=== PATIENT | male | born 1985 | race Two or more races ===

== ENCOUNTER 2022-08-31 15:35 | Outpatient (REF) | payer BC, SELFPAY ==
[2022-08-31 16:59] LABS: Hematocrit 47.6 % (42.0-52.0); Hemoglobin 16.2 g/dl (14.0-18.0); Mean Corpuscular Volume 85.2 fL (80.0-98.0); Mean Platelet Volume 9.6 fL (9.4-12.4); Platelet Count 403 X10*3/uL (160-400); Red Blood Count 5.59 X10*6/uL (4.60-5.80); Red Cell Distribution Width 12.5 % (11.0-16.0); White Blood Count 11.1 X10*3/uL (4.8-10.8)
[2022-08-31 17:26] LABS: Alanine Aminotransferase 39 U/L (0-40); Albumin Level 4.5 g/dL (3.5-5.0); Alkaline Phosphatase 145 U/L (39-117); Anion Gap 15 (12-20); Aspartate Amino Transferase 23 U/L (5-37); Blood Urea Nitrogen 13 mg/dL (9-16); Calcium 9.6 mg/dL (8.4-10.2); Carbon Dioxide 22 mmol/L (22-29); Chloride 106 mmol/L (96-108); Estimated Glomerular Filt Rate > 60; Glucose Fasting 75 mg/dL (60-99); Potassium 4.2 mmol/L (3.3-5.1); Sodium 139 mmol/L (135-145); Total Protein 7.4 g/dL (6.5-8.0)
== END 2022-08-31 15:36 | disposition home or self-care (01) ==
LOC: HO.LAB 15:35
PROVIDERS: PCP Physician Assistant; Visit Provider Physician Assistant
DX: Z13.1 Encounter for screening for diabetes mellitus (principal); M94.0 Chondrocostal junction syndrome [Tietze]; E66.9 Obesity, unspecified; R53.83 Other fatigue
CPT/HCPCS: 36415; 80053; 84443; 85027

== ENCOUNTER 2023-01-13 15:23 | Outpatient (AMB) | payer BC, SELFPAY ==
[2023-01-13 15:29] VITALS: BP 120/72; PULSE 86; O2SAT 97; BMI 31.9
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
== END 2023-01-13 16:05 | disposition home or self-care (01) ==
PROVIDERS: PCP Physician Assistant; Visit Provider Physician Assistant
DX: I10 Essential (primary) hypertension (principal); E66.09 Other obesity due to excess calories; Z68.35 Body mass index [BMI] 35.0-35.9, adult; M25.561 Pain in right knee; G89.29 Other chronic pain
CPT/HCPCS: 99214

== ENCOUNTER 2023-05-09 15:40 | Outpatient (AMB) | payer BC, SELFPAY ==
--- NOTE | 2023-05-09 16:00 | A.OFFPC_ITS ---
Vital Signs 05/09/23 16:18 Height 6 ft Weight 238 lb 4 oz BMI 32.3 BP 112/86 Blood Pressure Location Lt brachial Position Sitting Respiration 17 Pulse 84 Pulse Source Palpation Intake Visit Reasons: Annual exam Intake Note: Patient is here today for a physical. Manager [employer] Required: No Accompanied by: Self / Same As Patient Allergies No Known Allergies [No Known Allergies*] Allergy (Verified 05/09/23 16:32) Medication List - Last Reconciled 05/09/23 by Juan Pete PA-C No Known Home Meds Tobacco use date assessed: 05/09/23 Dental Screening Dental Screen Date: 05/09/23 Did you have a dental visit in the last 12 months?: Yes Did you have a dental problem in the last 6 months where you did not have access to dental care?: No Was dental information given to patient?: Patient has dentist HPI Annual exam HPI Details Patient is a 37-year-old male here today for routine annual physical ? Patient has a past medical history significant for obesity, generalized anxiety disorder and major depressive disorder, lumbar disc disease, hypertension Concern--> continues to have acute on chronic lower back pain and right shoulder pain. Recent was shoveling due to recent snowstorm. He is interested in applying for FMLA due to his back pain. Of note x-rays of his lumbar spine in 2019 showing disc narrowing at L5-S1. Has had evaluation from lumbar specialist and was considering injections . Hypertension: Has not started blood pressure medication, blood pressure today in office normal. He has been able to manage his blood pressure with lifestyle modifications. Vaccines: Up-to-date with flu vaccine, tetanus vaccine, declines COVID vaccine. [facility] Medical History CABRERA (generalized anxiety disorder) Mild recurrent major depression Class 1 obesity with body mass index (BMI) of 34.0 to 34.9 in adult Right sided sciatica Surgical History History of shoulder surgery Family History Father Diabetes Hypertension Mother Diabetes Hypertension Brother Brain aneurysm Stroke Social History Housing: House Alcohol intake: current Alcohol intake frequency: holidays/special occasions only Alcohol type: beer and wine Patient Tobacco Use Status: Former Tobacco user Quit Date: 2014 Tobacco use type: Cigarette e-Cigarette/Vaping Use: Never Used Second Hand Smoke Exposure: No service: No Current occupational status: employed 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 Cognitive needs: No Hearing needs: No Vision needs: No Questionnaire PHQ-9 Over the last 2 weeks, how often have you been bothered by any of the following problems? 1. Little interest or pleasure in doing things: not at all 2. Feeling down, depressed, or hopeless: not at all 3. Trouble falling or staying asleep, or sleeping too much: not at all 4. Feeling tired or having little energy: not at all 5. Poor appetite or overeating: not at all 6. Feeling bad about yourself - or that you are a failure or have let yourself or your family down: not at all 7. Trouble concentrating on things, such as reading the newspaper or watching television: not at all 8. Moving or speaking so slowly that other people could have noticed. Or the opposite - being so fidgety or restless that you have been moving around a lot more than usual: not at all 9. Thoughts that you would be better off or of hurting yourself in some way: not at all Total score: 0 Depression Screening Interpretation: Negative Depression Screening Done: Yes 25750 - PHQ-9 Billing: Yes Source: Developed by Drs. Denis Dougherty, Kayla Fraser, Amilcar Ramos and colleagues, with an educational jayy from [employer]. Thrive Questionnaire Date Thrive assessed: 05/09/23 I am a: Patient What is your living situation today?: I have a steady place to live Within the past 12 months, did the food you bought not last and you didn't have the money to get more?: Never true Within the past 12 months, did you worry whether your food would run out before you got money to buy more?: Never true Do you have trouble paying for medicines?: No Do you have trouble getting transportation to medical appointments?: No Do you have trouble paying your heating and electricity bill?: No Do you have trouble taking care of your child, family member or friend?: No Do you have trouble with day-to-day activities such as bathing, preparing meals, shopping, managing finances, etc.?: No Are you currently unemployed and looking for a job?: No Are you interested in more education?: No Please select the resources that you would like help with: None Currently or been in a relationship where the following occur: no concerns reported AUDIT C Alcohol Use Questionnaire (AUDIT-C) 1. How often do you have a drink containing alcohol?: Monthly or less 2. How many drinks containing alcohol do you have on a typical day when you are drinking?: 1 or 2 3. How often do you have six or more drinks on one occasion?: Never Total Score: 1 CABRERA-7 AMB Questionnaire CABRERA-7 Date CABRERA - 7 assessed: 05/09/23 Feeling nervous, anxious, or on edge: 0 = Not at all Not being able to stop or control worryin = Not at all Worrying too much about different things: 0 = Not at all Trouble relaxin = Not at all Being so restless that it is hard to sit still: 0 = Not at all Becoming easily annoyed or irritable: 0 = Not at all Feeling afraid as if something awful might happen: 0 = Not at all Total CABRERA-7 score (0-4 normal; 5-9 mild; 10-14 moderate; 15-21 severe): 0 Source: Developed by Drs. Denis Dougherty, Kayla Fraser, Amilcar Ramos and colleagues, with an educational jayy from [employer]. CABRERA-7 Assessment Billing CABRERA-7 Assessment Tool: CABRERA-7 Assessment 19748 Review of Systems Const Denies body aches, Denies chills, Denies excessive sweating, Denies fatigue, Denies fever(s) and Denies headache(s) Eyes Denies blurry vision ENT Denies dysphagia, Denies vertigo, Denies dizziness, Denies headache(s), Denies hearing loss and Denies tinnitus Card Denies chest pain, Denies chest pain with activity, Denies syncope, Denies irregular heart rhythm and Denies dyspnea Resp Denies chest congestion, Denies cough, Denies hemoptysis, Denies dyspnea and Denies wheezing GI Denies abdominal pain, Denies melena, Denies hematochezia, Denies coffee ground emesis, Denies dysphagia, Denies diarrhea, Denies nausea and Denies vomiting Denies difficulty urinating, Denies dysuria, Denies urinary frequency, Denies urinary hesitancy and Denies urinary urgency Musc Details: + right shoulder pain Reports back pain, Reports arthralgias, Denies limited range of motion, Denies muscle cramps and Denies muscle weakness Skin/Breast Denies rash and Denies skin ulcer Neuro Denies Abnormal speech present, Denies confusion, Denies vertigo, Denies diz ziness, Denies syncope, Denies headache(s), Denies memory loss and Denies seizure-like activity Psych Denies anxiety, Denies confusion, Denies depression, Denies memory loss, Denies panic attacks and Denies paranoia Endo Denies excessive sweating, Denies fatigue, Denies flushing, Denies polydipsia and Denies polyuria Aller/Immun Denies wheezing Physical exam (Primary Care) Vital Signs: Last Vital Signs Pulse 84 05/09/23 16:18 Resp 17 05/09/23 16:18 BP 112/86 05/09/23 16:18 BMI result Body Mass Index 32.3 BMI Assessment/Plan discussion: High Tobacco/Smoking Status: Tobacco use Status Tobacco use date assessed 05/09/23 05/09/23 16:22 Patient Tobacco Use Status Former Tobacco user 05/09/23 16:00 Tobacco use type Cigarette 05/09/23 16:00 e-Cigarette/Vaping Use Never Used 05/09/23 16:00 PHQ-9: PHQ-9 Score PHQ-9: Total score 0 05/09/23 16:34 Depression Screening Interpretation: Negative Thrive Assessment: Date of Thrive Assessment Date Thrive assessed 05/09/23 05/09/23 16:22 Currently or been in a relationship where the following occur: no concerns reported Const Other: Obese General: cooperative, comfortable, no acute distress, alert and awake; No confusion Orientation/consciousness: oriented to person, oriented to place, patient oriented x3 and No confusion HENMT Head: Yes normocephalic Ears: external ears normal and TM's normal bilaterally Face and sinus: No sinus tenderness Mouth: Normal oral and palatal mucosa present and tongue normal Teeth and gingiva: dentition normal and gingiva normal Throat: Yes posterior oropharynx normal, Yes tonsils normal and Yes uvula midline Eyes Conjunctivae: conjunctivae normal Sclerae: sclerae normal Pupils: Equal, round and reactive pupils present EOM: EOMs intact bilaterally Direct Ophthalmoscopy: No no photophobia Neck Neck: Yes no lymphadenopathy, No tender and Yes no JVD Thyroid: Thyroid normal Carotids: no bruits Chest Chest palpation & inspection: no tenderness Resp Effort & Inspection: normal respiratory effort, no audible wheezes, not labored and no stridor Auscultation: no crackles, no rales, no rhonchi and no wheezes Cardio Jugular venous distension: no JVD Rate: regular rate, not bradycardic and not tachycardic Rhythm: regular rhythm Bruits: no carotid bruits Peripheral pulses: Peripheral pulses 2+ throughout GI Inspection: Yes normal to inspection, No abdominal wall ecchymosis and No visible herniation Palpation (GI): Soft to palpation, nontender, no guarding, not rigid and No hepatosplenomegaly present Auscultation: normoactive bowel sounds General: Yes no CVA tenderness Back/Spine/Pelvis Back: no CVA tenderness and No back tenderness Cervical Spine: cervical ROM normal Thoracic/Lumbar Spine: thoracic and lumbar spine normal to inspection, straight leg raise negative bilaterally, No thoraco-lumbar ROM limited and No lumbar spinal tenderness Skin Lesions: no lesions Rashes: no rashes Wounds: no wounds Neuro General: oriented to person, oriented to place, patient oriented x3, CN's II-XI intact bilaterally and No confusion Cranial nerves: Yes Equal, round and reactive pupils present and Yes Normal accommodation reflex present Cognition (Neuro): normal cognition Speech: No Abnormal speech present Gait exam (Neuro): Normal gait present Motor exam (neuro): 5/5 motor strength present throughout Extrem Right upper extremity: full ROM; no cyanosis Left upper extremity: full ROM; no cyanosis Right lower extremity: no edema Left lower extremity: no edema Psych Appearance: grossly normal Mental Status: mental status grossly normal Affect: normal affect Attitude: cooperative Thought process: Normal thought process present Office Procedures Flu Questionnaire Does the patient have a severe egg allergy?: No Does the patient have severe life threatening allergies?: No Does the patient have a fever or illness today?: No Has the patient ever had Guillain-[place] Syndrome?: No Has the patient ever had any past reaction to a flu shot?: No Immunizations flu vacc [id number] 6mos up(PF) 60 mcg(15 mcgx4)/0.5 mL IM syringe Performing Provider: Juan Pete PA-C Performing Location: [facility] Administered by: EDE Parker on 05/09/23 16:27 Dose Route Admin Location Dispensed Lot Number Expiration Date NDC [employer] Block Setter 0.5 mL IM Left Deltoid 0.5 mL [id number] 10/30/23 72460-159-39 [place] VIS Given Date VIS Provided VIS Publication Date 05/09/23 Single Vaccine 20 Eligibility Eligibility Date Funding Source Not VFC Eligible 05/09/23 Private Assessment and Plan Assessment & Plan (1) Annual physical exam: Code(s): Z00.00 - Encounter for general adult medical examination without abnormal findings (2) HTN (hypertension): Code(s): I10 - Essential (primary) hypertension Qualifiers: Hypertension type: primary hypertension Qualified Code(s): I10 - Essential (primary) hypertension Plan: Patient has a history hypertension, was on blood pressure medication previously though is not interested in taking medication. Has been able to manage his blood pressure with lifestyle modifications.. Goal blood pressures to be below 140/90 (3) Obese: Code(s): E66.9 - Obesity, unspecified Qualifiers: Body mass index: BMI 35.0-35.9 Obesity classification: adult class 2 (BMI 35 - 39.9) Obesity type: due to excess calories Serious obesity com orbidity presence: without serious comorbidity Qualified Code(s): E66.09 - Other obesity due to excess calories; Z68.35 - Body mass index [BMI] 35.0-35.9, adult Plan: Patient does understand BMI is over 30 will work on being more physically active and adapting to better eating habits to reduce his weight. (4) Mild recurrent major depression: Code(s): F33.0 - Major depressive disorder, recurrent, mild Plan: Patient's PHQ-9 score 0.. Has a history of major depressive disorder though has essentially resolved, not on any medication or speaking to any mental health therapist. Otherwise denies any SI or HI (5) Lumbar disc disease with radiculopathy: Code(s): M51.16 - Intervertebral disc disorders with radiculopathy, lumbar region Plan: Patient does have a history of chronic lower lumbar spine pain. X-rays of lower lumbar spine in 2019 showing disc space narrowing at L5-S1. Has seen spinal specialist and has gotten injections. Physical therapy was not helpful in the past. At times he does get radiculopathy down lower extremities. Generally is able to manage his back pain on his own. He is interested in applying for FMLA to be off from work on times of back pain flares. Will supply with muscle relaxer to use on a p.r.n. basis for back pain. Orders: Orders Influenza [id number] Immunization 05/09/23 Z23 - Encounter for immunization Medications: New cyclobenzaprine 10 mg PO TID 7 days PRN 21 tabs 0RF muscle spasm M51.16 - Intervertebral disc disorders with radiculopathy, lumbar region Coding Level of Care Code Est Pt Prev Care [id number]) Diagnoses Annual physical exam Z00.00 Primary hypertension I10 Hypertension type: primary hypertension Class 2 obesity due to excess calories without serious comorbidity with body mass index (BMI) of 35.0 to 35.9 in adult E66.09; Z68.35 Body mass index: BMI 35.0-35.9 Obesity classification: adult class 2 (BMI 35 - 39.9) Obesity type: due to excess calories Serious obesity comorbidity presence: without serious comorbidity Mild recurrent major depression F33.0 Lumbar disc disease with radiculopathy M51.16 Additional Codes CABRERA-7 Assessment Billing - CABRERA-7 Assessment Tool: CABRERA-7 Assessment [id number] ([id number])
[2023-05-09 16:18] VITALS: BP 112/86; PULSE 84; RESP 17; BMI 32.3
== END 2023-05-09 16:51 | disposition home or self-care (01) ==
PROVIDERS: Visit Provider Physician Assistant
DX: Z23 Encounter for immunization (principal)
CPT/HCPCS: 90471; 90686; 99395

== ENCOUNTER 2023-11-15 15:24 | Outpatient (AMB) | payer BC, SELFPAY ==
[2023-11-15 15:30] VITALS: BP 124/86; PULSE 100; O2SAT 97; BMI 32.7
--- NOTE | 2023-11-15 15:30 | MHC.PC.OV ---
Vital Signs 11/15/23 15:30 Height 6 ft Weight 241 lb 4 oz BMI 32.7 BP 124/86 Blood Pressure Location Lt brachial Position Sitting Pulse 100 Pulse Source Pulse Oximeter Pulse Oximetry (%) 97 Oxygen Delivery Method Room Air Intake Visit Reasons: f/u HTN/ Lumbar spine issues Therapeutic Recreation Specialist Required: No Accompanied by: Self / Same As Patient Allergies No Known Allergies [No Known Allergies*] Allergy (Verified 11/15/23 15:35) Medication List - Last Reconciled 11/15/23 by Juan Pete PA-C cyclobenzaprine 10 mg PO TID PRN 7 days Tobacco use date assessed: 05/09/23 Dental Screening Dental Screen Date: 05/09/23 HPI f/u HTN/ Lumbar spine issues HPI Details Patient is a 38-year-old male here today for a follow-up visit ? Patient has a past medical history significant for obesity, generalized anxiety disorder and major depressive disorder, lumbar disc disease, hypertension Concern--> he reports he had an episode of left-sided sharp chest pain will at work last week. Also reports he has been having some neck discomfort and notable crepitus when rotating in flexing his neck. Concern--> continues to have acute on chronic lower back pain and right shoulder pain. Recent was shoveling due to recent snowstorm. He does use cyclobenzaprine on a p.r.n. basis for his low back pain. Of note x-rays of his lumbar spine in 2019 showing disc narrowing at L5-S1. Has had evaluation from lumbar specialist and was considering injections . Hypertension: Has not started blood pressure medication, blood pressure today in office normal. He has been able to manage his blood pressure with lifestyle modifications. [facility] Medical History CABRERA (generalized anxiety disorder) Mild recurrent major depression Class 1 obesity with body mass index (BMI) of 34.0 to 34.9 in adult Right sided sciatica Surgical History History of shoulder surgery Family History Father Diabetes Hypertension Mother Diabetes Hypertension Brother Brain aneurysm Stroke Social History Housing: House Alcohol intake: current Alcohol intake frequency: holidays/special occasions only Alcohol type: beer and wine Patient Tobacco Use Status: Former Tobacco user Tobacco use type: Cigarette e-Cigarette/Vaping Use: Never Used Second Hand Smoke Exposure: No service: No Current occupational status: employed 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 Cognitive needs: No Hearing needs: No Vision needs: No Questionnaire Thrive Questionnaire Date Thrive assessed: 05/09/23 CABRERA-7 AMB Questionnaire CABRERA-7 Date CABRERA - 7 assessed: 05/09/23 Source: Developed by Drs. Denis Dougherty, Kayla Fraser, Amilcar Ramos and colleagues, with an educational jayy from [employer]. Review of Systems Const Denies headache(s) Eyes Denies loss of vision ENT Denies vertigo, Denies dizziness, Denies headache(s) and Denies sore throat Card Denies chest pain, Denies leg edema and Denies lightheadedness Resp Denies cough, Denies hemoptysis and Denies wheezing GI Denies abdominal pain, Denies melena, Denies constipation, Denies diarrhea and Denies vomiting Denies dysuria, Denies urinary frequency and Denies urinary urgency Musc Denies arthralgias, Denies joint swelling, Denies numbness and Denies tingling Neuro Denies Abnormal speech present, Denies behavioral changes, Denies vertigo, Denies dizziness, Denies headache(s), Denies loss of vision, Denies memory loss, Denies numbness and Denies tingling Psych Denies anxiety, Denies behavioral changes, Denies depression, Denies memory loss and Denies panic attacks Rene/Lymph Denies easy bleeding and Denies easy bruising Aller/Immun Denies wheezing Physical exam (Primary Care) Vital Signs: Last Vital Signs Pulse 100 11/15/23 15:30 BP 124/86 11/15/23 15:30 Pulse Ox 97 11/15/23 15:30 Oxygen Delivery Method Room Air 11/15/23 15:30 BMI result Body Mass Index 32.7 Tobacco/Smoking Status: Tobacco use Status Tobacco use date assessed 05/09/23 11/15/23 15:35 Patient Tobacco Use Status Former Tobacco user 11/15/23 15:35 Tobacco use type Cigarette 11/15/23 15:35 e-Cigarette/Vaping Use Never Used 11/15/23 15:35 Thrive Assessment: Date of Thrive Assessment Date Thrive assessed 05/09/23 11/15/23 15:35 Const General: healthy appearing, no acute distress, alert and awake Nutritional Appearance: well nourished Orientation/consciousness: oriented to person, oriented to place and oriented to time HENMT Ears: TM's normal bilaterally General nose exam: Normal nasal mucous membranes and turbinates present Eyes Conjunctivae: conjunctivae normal Sclerae: sclerae normal Pupils: Equal, round and reactive pupils present Neck Neck: Yes no lymphadenopathy and Yes no JVD Thyroid: Thyroid normal Carotids: no bruits Resp Effort & Inspection: normal respiratory effort and not tachypneic Auscultation: no crackles, no rales, no rhonchi and no wheezes Cardio Rate: regular rate Rhythm: regular rhythm Heart sounds: no murmurs and normal S1 and S2 GI Palpation (GI): Soft to palpation, nontender, no hepatomegaly and no splenomegaly Auscultation: normal bowel sounds Back/Spine/Pelvis Back/spine/pelvis image: 1. LARGE SOFT SUBCUTANEOUS MASS OVER THE AREA OUTLINED Skin General skin exam: no rashes or lesions noted and dry skin Neuro General: oriented to person, oriented to place and oriented to time Cranial nerves: Yes Equal, round and reactive pupils present Speech: No Abnormal speech present Gait exam (Neuro): Normal gait present Motor exam (neuro): no tremor noted Extrem Right upper extremity: full ROM Left upper extremity: full ROM Right lower extremity: full ROM; no edema Left lower extremity: full ROM; no edema Psych Mental Status: mental status grossly normal Speech and movement: Normal speech and movement present Affect: normal affect Attitude: cooperative Thought process: Normal thought process present Assessment and Plan Assessment & Plan (1) HTN (hypertension): Code(s): I10 - Essential (primary) hypertension Qualifiers: Hypertension type: primary hypertension Qualified Code(s): I10 - Essential (primary) hypertension Plan: Patient has a history hypertension, was on blood pressure medication previously though is not interested in taking medication. Has been able to manage his blood pressure with lifestyle modifications.. Goal blood pressures to be below 140/90 (2) Lumbar disc disease with radiculopathy: Code(s): M51.16 - Intervertebral disc disorders with radiculopathy, lumbar region Plan: Patient does have a history of chronic lower lumbar spine pain. X-rays of lower lumbar spine in 2019 showing disc space narrowing at L5-S1. Has seen spinal specialist and has gotten injections. Physical therapy was not helpful in the past. At times he does get radiculopathy down lower extremities. Generally is able to manage his back pain on his own. He is interested in applying for FMLA to be off from work on times of back pain flares. Will supply with muscle relaxer to use on a p.r.n. basis for back pain. (3) Dermoid cyst of skin of back: Code(s): D23.5 - Other benign neoplasm of skin of trunk Plan: Has large subcutaneous cystic like structure over his mid upper back. He would like to see general surgeon for removal of the cyst. (4) Cervical spine crepitus: Code(s): M24.80 - Other specific joint derangements of unspecified joint, not elsewhere classified Plan: As per HPI patient is experiencing what seems to be crepitus in his cervical spine. Will send for x-rays to evaluate for any advanced arthritis. Again he is not interested in any physical therapy at this time. (5) Chest pain: Code(s): R07.9 - Chest pain, unspecified Qualifiers: Chest pain type: intercostal pain Qualified Code(s): R07.82 - Intercostal pain Orders: Orders ECG 12 lead EKG 11/15/23 R07.9 - Chest pain, unspecified XR cervical spine 3V 11/15/23 M24.80 - Other specific joint derangements of unspecified joint, not elsewhere classified Referrals General Surgery Referral D23.5 - Other benign neoplasm of skin of trunk Patient Instructions: Goal: Blood pressure to remain below 140/90 Barriers: Adherence to physical activity and healthy eating habits Coding Level of Care Code Est Pt Level 4 (48418) Diagnoses Primary hypertension I10 Hypertension type: primary hypertension Lumbar disc disease with radiculopathy M51.16 Dermoid cyst of skin of back D23.5 Cervical spine crepitus M24.80 Intercostal pain R07.82 Chest pain type: intercostal pain
== END 2023-11-15 15:52 | disposition home or self-care (01) ==
PROVIDERS: PCP Physician Assistant; Visit Provider Physician Assistant
DX: I10 Essential (primary) hypertension (principal); M51.16 Intervertebral disc disorders with radiculopathy, lumbar region; D23.5 Other benign neoplasm of skin of trunk; M24.80 Other specific joint derangements of unspecified joint, not elsewhere classified; R07.82 Intercostal pain
CPT/HCPCS: 99214

== ENCOUNTER 2023-12-05 15:32 | Outpatient (REF) | payer BC, SELFPAY ==
--- NOTE | ~2023-12-05 | XR_ITS ---
EXAMINATION: XR CERVICAL SPINE CLINICAL INFORMATION: creak in neck COMPARISON: 10/13/2017 TECHNIQUE: 3 views of the cervical spine were obtained. FINDINGS: Mild cervical lordotic straightening. See 2 through C6 are maintained in height, C7 is obscured. Trace retrolisthesis C4 on C5 is unchanged. Odontoid is obscured. Posterior elements are aligned. No prevertebral soft tissue swelling seen. Lung apices are remarkable for azygos lobe. Soft tissues are unremarkable. XR/XR cervical spine 3V IMPRESSION: Mild cervical lordotic straightening, trace retrolisthesis C4 on C5. Suboptimal visualization of the odontoid and nonvisualization C7. No acute bony pathology. Electronically signed by: Kenzie Agee MD 01/03/2024 09:58 AM EDT
[2023-12-05 16:59] LABS: Hematocrit 46.4 % (42.0-52.0); Hemoglobin 15.7 g/dl (14.0-18.0); Mean Corpuscular HGB Conc 33.8 g/dl (31.0-36.0); Mean Corpuscular Hemoglobin 28.7 pg (27.0-33.0); Mean Corpuscular Volume 84.8 fL (80.0-98.0); Mean Platelet Volume 9.3 fL (9.4-12.4); Platelet Count 403 X10*3/uL (160-400); Red Blood Count 5.47 X10*6/uL (4.60-5.80); Red Cell Distribution Width 12.8 % (11.0-16.0); White Blood Count 11.8 X10*3/uL (4.8-10.8)
[2023-12-05 17:28] LABS: Alanine Aminotransferase 35 U/L (0-40); Albumin Level 4.4 g/dL (3.5-5.0); Alkaline Phosphatase 152 U/L (39-117); Anion Gap 13 (12-20); Aspartate Amino Transferase 27 U/L (5-37); Bilirubin Total 0.8 mg/dL (0.0-1.0); Blood Urea Nitrogen 14 mg/dL (9-16); Calcium 9.9 mg/dL (8.4-10.2); Carbon Dioxide 24 mmol/L (22-29); Chloride 108 mmol/L (96-108); Estimated Glomerular Filt Rate > 60; Glucose Fasting 76 mg/dL (60-99); Potassium 3.6 mmol/L (3.3-5.1); Sodium 141 mmol/L (135-145); Total Protein 7.7 g/dL (6.5-8.0)
== END 2023-12-05 15:33 | disposition home or self-care (01) ==
LOC: HO.LAB 15:32
PROVIDERS: PCP Physician Assistant; Visit Provider Physician Assistant
DX: I10 Essential (primary) hypertension (principal); M24.80 Other specific joint derangements of unspecified joint, not elsewhere classified
CPT/HCPCS: 36415; 72040; 80053; 82043; 82570; 85027

== ENCOUNTER 2024-01-03 15:06 | Outpatient (AMB) | payer BC, SELFPAY ==
--- NOTE | 2024-01-03 15:11 | MHC.OFFVIS ---
Vital Signs 01/03/24 15:13 Height 6 ft Weight 242 lb BMI 32.8 BP 135/88 Blood Pressure Location Rt brachial Position Sitting Pulse 95 Intake Visit Reasons: other benign neoplasm of skin of trunk Intake Note: Patient referred by pcp Juan KAUFMAN for cyst on mid back. Present for 1yr. Patient c/o: no concerns. Denies bleeding, oozing, tenderness. Laboratory Specialist Required: No Accompanied by: Self / Same As Patient Allergies No Known Allergies [No Known Allergies*] Allergy (Verified 01/03/24 15:12) HPI Comments Details: Patient presents for evaluation of a back sebaceous cyst. It is increasing in size, become more symptomatic. He would like to have removed. Chart was reviewed and patient evaluated [facility] Medical History CABRERA (generalized anxiety disorder) Mild recurrent major depression Class 1 obesity with body mass index (BMI) of 34.0 to 34.9 in adult Right sided sciatica Surgical History History of shoulder surgery Family History Father Diabetes Hypertension Mother Diabetes Hypertension Brother Brain aneurysm Stroke Social History (Updated 01/03/24 @ 15:13 by PAULINO Arana) Housing: House Alcohol intake: current Alcohol intake frequency: holidays/special occasions only Alcohol type: beer and wine Patient Tobacco Use Status: Former Tobacco user Tobacco use type: Cigarette e-Cigarette/Vaping Use: Never Used Second Hand Smoke Exposure: No service: No Current occupational status: employed 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 Cognitive needs: No Hearing needs: No Vision needs: No Physical Exam Vital Signs: Last Vital Signs Pulse 95 01/03/24 15:13 BP 135/88 01/03/24 15:13 BMI result Body Mass Index 32.8 Chest Other: Chest breath sounds bilaterally, HS 1 in 2 GI Other: Abdomen is soft, benign Back/Spine/Pelvis Other: Roughly mid back demonstrates approximately 5 x 3 cm mass consistent with a large sebaceous cyst Assessment & Plan Assessment & Plan (1) Sebaceous cyst: Code(s): L72.3 - Sebaceous cyst Category: Medical Plan Risks, benefits, alternatives of excision of mid back sebaceous cyst/mass were reviewed with the patient and included but not limited to bleeding, infection, recurrence, numbness, pain, scarring, wound dehiscence, seroma formation and the patient wishes to proceed. All questions answered. Arrangements made for this. Coding Level of Care Code New Pt Level 5 (79508) Diagnoses Sebaceous cyst L72.3
[2024-01-03 15:13] VITALS: BP 135/88; PULSE 95; BMI 32.8
== END 2024-01-03 15:26 | disposition home or self-care (01) ==
PROVIDERS: PCP Physician Assistant; Visit Provider Surgery
DX: L72.3 Sebaceous cyst (principal)
CPT/HCPCS: 99204

== ENCOUNTER → 2024-01-03 15:06 | Outpatient (BNVA) | payer BC, SELFPAY | PROVIDERS: PCP Physician Assistant; Visit Provider Surgery ==

== ENCOUNTER 2024-02-17 11:14 | Day surgery (SDC) | payer BC, SELFPAY ==
[2024-02-15 11:33] VITALS: BMI 32.8
--- NOTE | 2024-02-15 12:40 | HO.ANESPROP2 ---
Documented by User: Samantha Meyer NP 02/15/24 12:41 HPI - Anesthesia Eval Consult details Narrative: 38yo M for Wide Local Excision Back Mass PMFSH Active Problems Active Problems: All Active Problems Sebaceous cyst (Acute) Chest pain (Acute) Cervical spine crepitus (Acute) Dermoid cyst of skin of back (Acute) Lumbar disc disease with radiculopathy (Acute) Right knee pain (Acute) SHELDON (obstructive sleep apnea) (Acute) HTN (hypertension) (Acute) Witnessed apneic spells (Acute) Elevated blood pressure reading (Acute) Obese (Acute) Annual physical exam (Acute) Screening for hypothyroidism (Acute) Screening for diabetes mellitus (DM) (Acute) Costochondritis (Acute) Pleuritic chest pain (Acute) Atypical chest pain (Acute) CABRERA (generalized anxiety disorder) (Acute) Mild recurrent major depression (Acute) Class 1 obesity with body mass index (BMI) of 34.0 to 34.9 in adult (Acute) Right sided sciatica (Acute) Past Medical History Medical History Lumbar disc disease with radiculopathy HTN (hypertension) Sleep apnea CABRERA (generalized anxiety disorder) Mild recurrent major depression Class 1 obesity with body mass index (BMI) of 34.0 to 34.9 in adult Right sided sciatica Family History Family History Father Diabetes Hypertension Mother Diabetes Hypertension Brother Brain aneurysm Stroke Surgical History Surgical History History of shoulder surgery Social History Social History (Updated 01/03/24 @ 15:13 by PAULINO Arana) Housing: House Are you a primary healthcare sales representative to a significant other at home: No Do you presently have visiting nurse or other home services: No Alcohol intake: current Alcohol intake frequency: holidays/special occasions only Alcohol type: beer and wine Patient Tobacco Use Status: Former Tobacco user Tobacco use type: Cigarette e-Cigarette/Vaping Use: Never Used Second Hand Smoke Exposure: No Have you been hit, kicked, punched, or otherwise hurt by someone within the past year? 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 Cognitive needs: No Hearing needs: No Vision needs: No Meds Allergies Allergy/AdvReac Type Severity Reaction Status Date / Time No Known Allergies Allergy Verified 02/17/24 11:43 [No Known Allergies*] Exam Height,Weight and Vital Signs: Height 6 ft Weight 109.769 kg Pertinent Lab Results Pertinent Lab Results: Laboratory Tests 12/05/23 15:55 WBC 11.8 H Hgb 15.7 Hct 46.4 Plt Count 403 H Sodium 141 Potassium 3.6 Chloride 108 Carbon Dioxide 24 BUN 14 Creatinine 1.07 Assessment and Plan Assessment Anesthesia Assessment: Chart Reviewed Documented by User: Guille Frank MD 02/17/24 13:22 [facility] Past Medical History Medical History Lumbar disc disease with radiculopathy HTN (hypertension) Sleep apnea CABRERA (generalized anxiety disorder) Mild recurrent major depression Class 1 obesity with body mass index (BMI) of 34.0 to 34.9 in adult Right sided sciatica Family History Family History Father Diabetes Hypertension Mother Diabetes Hypertension Brother Brain aneurysm Stroke Family history of problems with anesthesia: No Surgical History Surgical History History of shoulder surgery History of Problems with Anesthesia: No Social History Social History (Updated 01/03/24 @ 15:13 by PAULINO Arana) Housing: House Are you a primary healthcare sales representative to a significant other at home: No Do you presently have visiting nurse or other home services: No Alcohol intake: current Alcohol intake frequency: holidays/special occasions only Alcohol type: beer and wine Patient Tobacco Use Status: Former Tobacco user Tobacco use type: Cigarette e-Cigarette/Vaping Use: Never Used Second Hand Smoke Exposure: No Have you been hit, kicked, punched, or otherwise hurt by someone within the past year? 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 Cognitive needs: No Hearing needs: No Vision needs: No Meds Allergies Allergy/AdvReac Type Severity Reaction Status Date / Time No Known Allergies Allergy Verified 02/17/24 11:43 [No Known Allergies*] Exam Airway Mallampati Class: I TM Dist: <=3cm Neck ROM: Full Loose/Missing/Broken Teeth: No Heart: ok Lungs: ok Assessment and Plan Assessment Anesthesia Assessment: Anesthesia Plan Discussed Final Anesthetic Review Family History of Problems with Anesthesia: No History of Problems with Anesthesia: No NPO: Yes ASA Class: II Final Preanesthetic Review: No Changes in Pt Med Stat, Meds/Allgs Chart Reviewed, Consent Obtained/Reviewed and Anes Risks/Benef Reviewed Patient Risk: Intermediate Procedure Risk: Low Anesthetic Plan Anesthetic Plan: MAC: and Agree w/ Assess. and Plan Disposition: Standard PACU
--- NOTE | 2024-02-16 09:54 | P.HPSUR_ITS ---
Pre-Procedural Eval Section A - 24 Hr Update-Section A only Date of Service: 02/17/24 The patient is an INPATIENT: No Changes since office visit: No Cold of Flu in the past 2 weeks, No New Medical Problems, No Changes in Medication and No Patient answered all questions Section B - Complete if H&P > 30 days Chief Complaint: Sebaceous cyst Allergies: Allergies Allergy/AdvReac Type Severity Reaction Status Date / Time No Known Allergies Allergy Verified 01/03/24 15:12 [No Known Allergies*] Review of Systems Sugical H&P ROS: Negative: Constitution, Cardiovascular, Respiratory, Neurological, Psychiatric, Hem-Onc, Allergic/Immunologic, Gastrointestinal, Genitourinary, Musculoskeletal, Integumentary, Endocrine and Eyes/Ear s/Nose/Throat Exam Surgical H&P Exam: Normal: HEENT, Normal: Heart, Normal: Lungs, Normal: Extremities, Normal: Abdomen, Normal: Skin and Normal: Neurological Plan I have reviewed the history and physical and performed a pertinent physical examination on my patient. No changes have occurred unless specified. Time Spent With Patient Time: Total time managing care of this patient today ____ minutes.
--- NOTE | 2024-02-17 10:07 | MHC.SHP ---
Pre-Procedural Eval Section A - 24 Hr Update-Section A only Date of Service: 02/17/24 The patient is an INPATIENT: No Changes since office visit: No Cold of Flu in the past 2 weeks, No New Medical Problems, No Changes in Medication and No Patient answered all questions Section B - Complete if H&P > 30 days Chief Complaint: Sebaceous cyst Allergies: Allergies Allergy/AdvReac Type Severity Reaction Status Date / Time No Known Allergies Allergy Verified 01/03/24 15:12 [No Known Allergies*] Plan I have reviewed the history and physical and performed a pertinent physical examination on my patient. No changes have occurred unless specified. Time Spent With Patient Time: Total time managing care of this patient today ____ minutes.
[2024-02-17 11:42] VITALS: BMI 32.3
[2024-02-17] MEDS: Lactated Ringers 1,000 ML 100 ML IVCONT (11:52)
[2024-02-17 12:02] VITALS: BP 137/86; PULSE 94; RESP 18; TEMP 36.7; O2SAT 96
--- NOTE | 2024-02-17 14:06 | P.OP_ITS ---
Operative Note Operative Note Date of Service: 02/17/24 Narrative: Preoperative diagnosis: [] Large symptomatic mid back sebaceous cyst Postop diagnosis: [] The same Procedure [] wide local excision sebaceous cyst mid back Surgeon: [] Siddharth Collar Baster: [] David Type of Anesthesia: [] MAC Indication for surgery: [] Specimen was approximately 5 x 4 cm consistent with a large/giant sebaceous cyst Findings: [] Patient brought to the operating room, placed on operative table supine position, after an adequate level of MAC anesthesia was induced, patient was placed in the right lateral decubitus position mid mid back was prepped and draped in usual sterile fashion. Using 1% lidocaine 0.5% Marcaine, proposed incision site was infiltrated and a transverse by elliptical incision made and carried down through skin, subcutaneous tissue, were uneventful excision of a large sebaceous cyst was uneventfully performed. Specimen sent to pathology. Wound was irrigated, secured hemostasis, and closed using interrupted inverted dermal 3-0 Vicryl sutures followed by Steri-Strips and sterile dressings. Sponge, needle, and instrument counts were reported correct. Patient tolerated the procedure well and emerged from anesthesia stable condition. EBL minimal
[2024-02-17 14:15] VITALS: BP 132/99; PULSE 79; RESP 16; TEMP 36.7; O2SAT 97
[2024-02-17 14:29] VITALS: BP 156/99; PULSE 80; RESP 16; TEMP 36.4; O2SAT 98
== END 2024-02-17 14:45 | disposition home or self-care (01) ==
PROVIDERS: PCP Physician Assistant; Visit Provider Surgery
PROC: (CPT 11406; principal; 2024-02-17 13:50)
DX: L72.3 Sebaceous cyst (principal); G47.33 Obstructive sleep apnea (adult) (pediatric); I10 Essential (primary) hypertension; Z79.899 Other long term (current) drug therapy; Z87.891 Personal history of nicotine dependence
CPT/HCPCS: 11406; 88304; J0690; J2003; J2704; J2795; J3010

== ENCOUNTER → 2024-02-17 11:14 | Outpatient (BNV) | payer BC, SELFPAY | PROVIDERS: PCP Physician Assistant; Visit Provider Surgery | DX: L72.0 Epidermal cyst (principal) | CPT/HCPCS: 11406 ==

== ENCOUNTER 2024-02-27 12:40 | Outpatient (AMB) | payer BC, SELFPAY ==
--- NOTE | 2024-02-27 12:48 | A.OFFVIS_ITS ---
Vital Signs 02/27/24 12:51 Height 6 ft Weight 238 lb BMI 32.3 Intake Visit Reasons: s/p WLE mid back mass Intake Note: Patient here s/p WLE cyst on Mid lower back on 02-17-24. Reports incision healing well. Patient c/o: reports no complaints. Second Watch Sergeant Required: No Accompanied by: Self / Same As Patient Allergies No Known Allergies [No Known Allergies*] Allergy (Verified 02/27/24 12:49) HPI Comments Details: Patient presents for follow-up. Unfortunately he has not been inactive and the fact it has been quite active. He noticed some discharge from his incision. Pathology is benign [facility] Medical History Lumbar disc disease with radiculopathy HTN (hypertension) Sleep apnea CABRERA (generalized anxiety disorder) Mild recurrent major depression Class 1 obesity with body mass index (BMI) of 34.0 to 34.9 in adult Right sided sciatica Surgical History History of shoulder surgery Family History Father Diabetes Hypertension Mother Diabetes Hypertension Brother Brain aneurysm Stroke Social History Housing: House Are you a primary animal caretaker supervisor to a significant other at home: No Do you presently have visiting nurse or other home services: No Alcohol intake: current Alcohol intake frequency: holidays/special occasions only Alcohol type: beer and wine Patient Tobacco Use Status: Former Tobacco user Tobacco use type: Cigarette e-Cigarette/Vaping Use: Never Used Second Hand Smoke Exposure: No service: No Current occupational status: employed 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 Cognitive needs: No Hearing needs: No Vision needs: No Physical Exam Vital Signs: BMI result Body Mass Index 32.3 Back/Spine/Pelvis Other: The most central part of the incision is mildly with some serous output with no evidence of any infection. Assessment & Plan Assessment & Plan (1) Postop check: Code(s): Z09 - Encounter for follow-up examination after completed treatment for conditions other than malignant neoplasm Category: Surgical Plan Patient has once again been strongly encouraged to discontinue any strenuous activities for next few weeks time because he will dehiscence wound otherwise. He will do his best. He has been given local instructions, and will otherwise follow-up p.r.n.. All questions answered. Coding Level of Care Code Global (71310) Diagnoses Postop check Z09
[2024-02-27 12:51] VITALS: BMI 32.3
== END 2024-02-27 14:08 | disposition home or self-care (01) ==
LOC: HO.HGS 12:41
PROVIDERS: PCP Physician Assistant; Referring Provider Physician Assistant; Visit Provider Surgery
DX: Z09 Encounter for follow-up examination after completed treatment for conditions other than malignant neoplasm (principal)
CPT/HCPCS: 99024

== ENCOUNTER → 2024-02-27 12:40 | Outpatient (BNVA) | payer BC, SELFPAY | PROVIDERS: PCP Physician Assistant; Referring Provider Physician Assistant; Visit Provider Surgery ==

== ENCOUNTER → 2024-05-16 15:34 | Outpatient (REF) | payer BC, SELFPAY ==
--- NOTE | 2024-05-16 15:49 | ECG_ITS ---
Test Reason : cp Blood Pressure : */* mmHG Vent. Rate : 84 BPM Atrial Rate : 84 BPM P-R Int : 148 ms QRS Dur : 80 ms QT Int : 362 ms P-R-T Axes : 23 13 -7 degrees QTcB Int : 427 ms Normal sinus rhythm with sinus arrhythmia Normal ECG No previous ECGs available Referred By: Juan Pete Electronically Signed By: Hima Soto
== END ==
LOC: HO.CARD 15:34
PROVIDERS: PCP Physician Assistant; Visit Provider Physician Assistant
DX: R07.9 Chest pain, unspecified (principal)
CPT/HCPCS: 93005

== ENCOUNTER → 2024-05-16 15:49 | Outpatient (BNV) | payer BC, SELFPAY | PROVIDERS: PCP Physician Assistant; Visit Provider Internal Medicine Cardiovascular Disease | DX: F07.9 Unspecified personality and behavioral disorder due to known physiological condition (principal) | CPT/HCPCS: 93010 ==

== ENCOUNTER 2024-05-17 15:43 | Outpatient (AMB) | payer BC, SELFPAY ==
--- NOTE | 2024-05-17 15:51 | A.OFFPC_ITS ---
Vital Signs 05/17/24 15:58 Height 6 ft Weight 249 lb 2 oz BMI 33.8 BP 124/86 Blood Pressure Location Lt brachial Position Sitting Pulse 106 H Pulse Source Pulse Oximeter Pulse Oximetry (%) 97 Oxygen Delivery Method Room Air Intake Visit Reasons: PE Intake Note: Patient is here today for a physical. Production Controller Required: No Accompanied by: Self / Same As Patient Allergies No Known Allergies [No Known Allergies*] Allergy (Verified 05/17/24 16:13) Medication List - Last Reconciled 05/17/24 by Juan Pete PA-C cyclobenzaprine 10 mg PO TID PRN 7 days hydrocodone-acetaminophen 5-325 mg 1 tab PO Q4-6H PRN Tobacco use date assessed: 05/17/24 Dental Screening Dental Screen Date: 05/17/24 Did you have a dental visit in the last 12 months?: Yes Did you have a dental problem in the last 6 months where you did not have access to dental care?: No Was dental information given to patient?: Patient has dentist HPI PE HPI Details Patient is a 38-year-old male here today for routine annual physical ? Patient has a past medical history significant for obesity, generalized anxiety disorder and major depressive disorder, lumbar disc disease, hypertension Concern-->Having trouble sleeping over the last .. Class 1 obesity: Unfortunately in the gained weight since last office visit. Has not been able to be to physically active. Today's BMI at 33.8 . Hypertension: Has not started blood pressure medication, blood pressure today in office normal. He has been able to manage his blood pressure with lifestyle modifications. Vaccines: Up-to-date with flu vaccine, tetanus vaccine, declines COVID vaccine. [facility] Medical History Lumbar disc disease with radiculopathy HTN (hypertension) Sleep apnea CABRERA (generalized anxiety disorder) Mild recurrent major depression Class 1 obesity with body mass index (BMI) of 34.0 to 34.9 in adult Right sided sciatica Surgical History History of shoulder surgery Family History Father Diabetes Hypertension Mother Diabetes Hypertension Brother Brain aneurysm Stroke Social History (Updated 05/17/24 @ 16:15 by Juan Pete PA-C) Housing: House Are you a primary care management assistant to a significant other at home: No Do you presently have visiting nurse or other home services: No Alcohol intake: current Alcohol intake frequency: holidays/special occasions only Alcohol type: beer and wine Patient Tobacco Use Status: Former Tobacco user Tobacco use type: Cigarette e-Cigarette/Vaping Use: Never Used Second Hand Smoke Exposure: No service: No Current occupational status: employed 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 Cognitive needs: No Hearing needs: No Vision needs: No Questionnaire PHQ-9 Over the last 2 weeks, how often have you been bothered by any of the following problems? 1. Little interest or pleasure in doing things: nearly every day 2. Feeling down, depressed, or hopeless: several days 3. Trouble falling or staying asleep, or sleeping too much: nearly every day 4. Feeling tired or having little energy: several days 5. Poor appetite or overeating: not at all 6. Feeling bad about yourself - or that you are a failure or have let yourself or your family down: not at all 7. Trouble concentrating on things, such as reading the newspaper or watching television: several days 8. Moving or speaking so slowly that other people could have noticed. Or the op posite - being so fidgety or restless that you have been moving around a lot more than usual: not at all 9. Thoughts that you would be better off or of hurting yourself in some way: several days Total score: 10 46395 - PHQ-9 Billing: Yes Source: Developed by Drs. Denis Dougherty, Kayla Fraser, Amilcar Ramos and colleagues, with an educational jayy from [employer]. Thrive Questionnaire Date Thrive assessed: 05/17/24 I am a: Patient What is your living situation today?: I have a place to live, but I am worried about losing it in the future Within the past 12 months, did the food you bought not last and you didn't have the money to get more?: Never true Within the past 12 months, did you worry whether your food would run out before you got money to buy more?: Never true Do you have trouble paying for medicines?: No Do you have trouble getting transportation to medical appointments?: No Do you have trouble paying your heating and electricity bill?: No Do you have trouble taking care of your child, family member or friend?: No Do you have trouble with day-to-day activities such as bathing, preparing meals, shopping, managing finances, etc.?: No Are you currently unemployed and looking for a job?: No Are you interested in more education?: Yes Please select the resources that you would like help with: None Currently or been in a relationship where the following occur: No concerns reported THRIVE Score: 1 AUDIT C Alcohol Use Questionnaire (AUDIT-C) 1. How often do you have a drink containing alcohol?: Monthly or less 2. How many drinks containing alcohol do you have on a typical day when you are drinking?: 1 or 2 3. How often do you have six or more drinks on one occasion?: Never Total Score: 1 CABRERA-7 AMB Questionnaire CABRERA-7 Date CABRERA - 7 assessed: 05/17/24 Feeling nervous, anxious, or on edge: 2 = More than half the days Not being able to stop or control worryin = Nearly every day Worrying too much about different things: 3 = Nearly every day Trouble relaxin = More than half the days Being so restless that it is hard to sit still: 3 = Nearly every day Becoming easily annoyed or irritable: 2 = More than half the days Feeling afraid as if something awful might happen: 2 = More than half the days Total CABRERA-7 score (0-4 normal; 5-9 mild; 10-14 moderate; 15-21 severe): 17 Source: Developed by Drs. Denis Dougherty, Kayla Fraser, Amilcar Ramos and colleagues, with an educational jayy from [employer]. CABRERA-7 Assessment Billing CABRERA-7 Assessment Tool: CABRERA-7 Assessment 66833 Physical exam (Primary Care) Vital Signs: Last Vital Signs Pulse 106 H 05/17/24 15:58 BP 124/86 05/17/24 15:58 Pulse Ox 97 05/17/24 15:58 Oxygen Delivery Method Room Air 05/17/24 15:58 BMI result Body Mass Index 33.8 Tobacco/Smoking Status: Tobacco use Status Tobacco use date assessed 05/17/24 05/17/24 16:01 Patient Tobacco Use Status Former Tobacco user 05/17/24 15:53 Tobacco use type Cigarette 05/17/24 15:53 e-Cigarette/Vaping Use Never Used 05/17/24 15:53 PHQ-9: PHQ-9 Score PHQ-9: Total score 10 05/17/24 16:01 Thrive Assessment: Date of Thrive Assessment Date Thrive assessed 05/17/24 05/17/24 15:53 Currently or been in a relationship where the following occur: No concerns reported Office Procedures Flu Questionnaire Does the patient have a severe egg allergy?: No Immunizations Fluarix Triv 9541-2124 (PF) 45 mcg (15 mcg x 3)/0.5 mL IM syringe Performing Provider: Juan Pete PA-C [facility] Documented (not given) by: EDE Parker on 05/17/24 16:02 Reason Not Given: Patient Refused Coding Diagnoses Annual physical exam Z00.00 SHELDON (obstructive sleep apnea) G47.33 Primary hypertension I10 Hypertension type: primary hypertension Tinnitus of both ears H93.13 Laterality: bilateral Primary insomnia F51.01 Insomnia type: primary Pain of right heel M79.671 Additional Codes CABRERA-7 Assessment Billing - CABRERA-7 Assessment Tool: CABRERA-7 Assessment 78818 ([id number]) PHQ-9 - 78781 - PHQ-9 Billing: Yes ([id number]) Assessment & Plan Assessment & Plan (1) Annual physical exam: Code(s): Z00.00 - Encounter for general adult medical examination without abnormal findings Category: Medical (2) SHELDON (obstructive sleep apnea): Code(s): G47.33 - Obstructive sleep apnea (adult) (pediatric) Category: Medical (3) HTN (hypertension): Code(s): I10 - Essential (primary) hypertension Category: Medical Qualifiers: Hypertension type: primary hypertension Qualified Code(s): I10 - Essential (primary) hypertension (4) Tinnitus: Code(s): H93.19 - Tinnitus, unspecified ear Category: Medical Qualifiers: Laterality: bilateral Qualified Code(s): H93.13 - Tinnitus, bilateral (5) Insomnia: Code(s): G47.00 - Insomnia, unspecified Category: Medical Qualifiers: Insomnia type: primary Qualified Code(s): F51.01 - Primary insomnia (6) Pain of right heel: Code(s): M79.671 - Pain in right foot Category: Medical Orders: Orders Influenza [id number] Immunization Today Z23 - Encounter for immunization Microalbumin, Random (w Creat) Today I10 - Essential (primary) hypertension Complete Blood Count no Diff Today I10 - Essential (primary) hypertension Comprehensive [place]. Panel Fast Today I10 - Essential (primary) hypertension RT home sleep study Today G47.33 - Obstructive sleep apnea (adult) (pediatric) Referrals Podiatry Referral M79.671 - Pain in right foot Medications: New hydroxyzine HCl 25 mg PO BEDTIME 10 days 10 tabs 0RF F51.01 - Primary insomnia
[2024-05-17 15:58] VITALS: BP 124/86; PULSE 106; O2SAT 97; BMI 33.8
== END 2024-05-17 16:33 | disposition home or self-care (01) ==
PROVIDERS: PCP Physician Assistant; Visit Provider Physician Assistant
DX: Z23 Encounter for immunization (principal)

== ENCOUNTER → 2024-05-17 15:43 | Outpatient (BNVA) | payer BC, SELFPAY | PROVIDERS: PCP Physician Assistant; Visit Provider Physician Assistant | DX: Z00.00 Encounter for general adult medical examination without abnormal findings (principal); I10 Essential (primary) hypertension; F51.01 Primary insomnia; M79.671 Pain in right foot; G47.33 Obstructive sleep apnea (adult) (pediatric); Z28.21 Immunization not carried out because of patient refusal | CPT/HCPCS: 90471; 96127 ==

== ENCOUNTER → 2024-07-03 15:37 | Outpatient (REF) | payer BC, SELFPAY ==
--- OUTSIDE RECORDS SUMMARY | 2024-07-03 19:40 | XMS_ITS | Clinical Summary ---
Author Organization [facility] Address [address] [place] [address] Care Team Providers Care Sephora Operations Consultant Name Role Phone Unavailable Primary Care Provider Unavailabl e Social History Tobacco Use Types Packs/Day Years Used Date Smoking Tobacco: Never Assessed Sex and Gender Information Value Date Recorded Sex Assigned at Not on file Gender Identity Not on file Sexual Orientation Not on file Plan of Treatment Health Maintenance Due Date Last Done Comments Hepatitis C Virus Screening 1984 HIV Screening 1997 DTaP/Tdap/Td Vaccines (1 - Tdap) 2003 Hepatitis B Vaccines (1 of 3 - 19+ 3-dose series) 2003 Influenza Vaccine 12/01/2023 COVID-19 Vaccine ( - 2023-2 5 season) 2024 HPV Vaccines Aged Out No longer eligi ble based on patient's age to complete this topic Pneumococcal Vaccine: Pediat devon (0-5 Years) and At-Risk Patients (6 to 49 Years) Aged Out No longer eligible b ased on patient's age to complete this topic
--- OUTSIDE RECORDS SUMMARY | 2024-07-03 19:40 | XMS_ITS | Clinical Summary ---
Author Organization [address] [facility] Address [address] [place] [address] Phone Care Team Providers Care Transmitter Engineer Name Role Phone Juan Pete Primary Care Provider Social History Tobacco Use Types Packs/Day Years Used Date Smoking Tobacco: Never Assessed Sex and Gender Information Value Date Recorded Sex Assigned at Not on file Legal Sex Male 4:34 AM EST Gender Identity Not on file Sexual Orientation Not on file Plan of Treatment Upcoming Encounters Date Type Department Care Team ([facility] st Contact Info) Description 07/25/2024 2:00 PM EDT Consult Orthopedic Surgery - [place] [address] [id number] Edward Garcia, DPM [address] [address] Health Maintenance Due Date Last Done Comments DTaP,Tdap,and Td Vaccines (1 - Tdap) 2003 Hepatitis B Vaccines (1 of 3 - 19+ 3-dose series) 2003 Cholesterol Screening (Lipid Panel) 04/04/2022 Depression Screening 04/04/2022 HIV Screening 04/04/2022 Hepatitis C Screening 04/04/2022 Social Influencers of Health Screening 04/04/2022 COVID-19 Vaccine ( - 2023-2 5 season) 2024 Influenza Vaccine (#1) 2024 HIB Vaccines Aged Out No longer eligi ble based on patient's age to complete this topic HPV Vaccines Aged Out No longer eligi ble based on patient's age to complete this topic Hepatitis A Vaccines Aged Out No long er eligible based on patient's age to complete this topic IPV Vaccines Aged Out No longer eligi ble based on patient's age to complete this topic MMR Vaccines Aged Out No longer eligi ble based on patient's age to complete this topic Meningococcal ACWY Vaccine Aged Out N o longer eligible based on patient's age to complete this topic Meningococcal B Vacine Aged Out No lo nger eligible based on patient's age to complete this topic Pneumococcal Vaccine: Pediat rics (0 to 5 Years) and At-Risk Patients (6 to 64 Years) Aged Out No longer eligible b ased on patient's age to complete this topic RSV Immunization Patients Un booker 20 months Aged Out No longer eligible b ased on patient's age to complete this topic Varicella Vaccines Aged Out No longer eligible based on patient's age to complete this topic Insurance Care Teams Transmitter Engineer Relationship Specialty Start Date End Date Juan Pete PA [address] [place] [phone] PCP - General Physician Treasury Analyst 06/08/24
--- OUTSIDE RECORDS SUMMARY | 2024-07-03 19:40 | XMS_ITS | Encounter Summary ---
Author Organization [facility] Address [address] [place] [address] Care Team Providers Care Tap Dancer Name Role Phone Unavailable Primary Care Provider Unavailabl e Encounter Details Date Type Department Care Team ([facility] st Contact Info) Description 03/31/2021 Erroneous Encounter [facility] CONVERSION DEPT [address] [place] [address] Michelle Miguel MD Needs valid address Social History Tobacco Use Types Packs/Day Years Used Date Smoking Tobacco: Never Assessed Sex and Gender Information Value Date Recorded Sex Assigned at Not on file Gender Identity Not on file Sexual Orientation Not on file documented as of this encounter Plan of Treatment Not on file documented as of this encounter Visit Diagnoses Not on filedocumented in this encounter
== END ==
LOC: HO.SL 15:37
PROVIDERS: PCP Physician Assistant; Visit Provider Physician Assistant
DX: G47.33 Obstructive sleep apnea (adult) (pediatric) (principal)
CPT/HCPCS: 95806

== ENCOUNTER 2024-08-28 10:20 | Outpatient (AMB) | payer BC, SELFPAY ==
[2024-08-28 10:23] VITALS: BP 136/70; PULSE 100; O2SAT 96; BMI 34.3
--- NOTE | 2024-08-28 10:23 | MHC.OFFVIS ---
Vital Signs 08/28/24 10:23 Height 6 ft Weight 253 lb BMI 34.3 BP 136/70 Blood Pressure Location Rt brachial Position Sitting Pulse 100 Pulse Source Pulse Oximeter Pulse Oximetry (%) 96 Oxygen Delivery Method Room Air Intake Visit Reasons: Obstructive sleep apnea Anthropology Department Chair Required: No Theater Education Teacher: Theater Education Teacher offered & declined Accompanied by: Self / Same As Patient Allergies No Known Allergies [No Known Allergies*] Allergy (Verified 08/28/24 10:29) Medication List - Last Reconciled 08/28/24 by Savanah Allen LPN CPAP (CPAP Machine/Device) Need for auto PAP 6 to 20 cm of water cyclobenzaprine 10 mg PO TID PRN 7 days hydrocodone-acetaminophen 5-325 mg 1 tab PO Q4-6H PRN hydroxyzine HCl 25 mg PO BEDTIME 10 days HPI HPI Obstructive sleep apnea: Details: Osman is a pleasant 39-year-old male, former minimal smoker with underlying severe obstructive sleep apnea. He was referred by PCP for management of CPAP therapy. He initially underwent sleep study for daytime fatigue, non restorative sleep and loud snoring. An order for CPAP in APAP mode with pressures 6-20 cm H2O was sent to [facility] for treatment of severe sleep apnea, AHI 39, with minimal nocturnal hypoxemia, lowest 82%, less than 88% for 4.6 minutes. He received initial email to set up CPAP therapy however is awaiting delivery of machine. He also notes ongoing dyspnea, chest tightness and wheezing for the last few months without any known triggers. He denies prior history of asthma. He denies secondhand smoke exposure. He endorses seasonal allergies that have been progressively worsening, no recent allergy testing. 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 He denies any pertinent family history. He also reports ongoing concerns of dizziness an intermittent chest pain that lasts for 15 to 20 seconds for the last few months. Prior EKG from May unremarkable. He denies sustained chest pain or chest pain with exertion. [facility] Medical History Lumbar disc disease with radiculopathy HTN (hypertension) Sleep apnea CABRERA (generalized anxiety disorder) Mild recurrent major depression Class 1 obesity with body mass index (BMI) of 34.0 to 34.9 in adult Right sided sciatica Surgical History History of shoulder surgery Family History Father Diabetes Hypertension Mother Diabetes Hypertension Brother Brain aneurysm Stroke Social History (Updated 05/17/24 @ 16:15 by Juan Pete PA-C) Housing: House Are you a primary personal care aide to a significant other at home: No Do you presently have visiting nurse or other home services: No Alcohol intake: current Alcohol intake frequency: holidays/special occasions only Alcohol type: beer and wine Patient Tobacco Use Status: Former Tobacco user Tobacco use type: Cigarette e-Cigarette/Vaping Use: Never Used Second Hand Smoke Exposure: No service: No Current occupational status: employed 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 Cognitive needs: No Hearing needs: No Vision needs: No Review of Systems Const Denies chills, Denies excessive sweating, Denies fever(s), Denies headache(s) and Denies night sweats Eyes Denies dry eyes, Denies irritation and Denies itchy eyes ENT Reports Normal hearing present, Denies headache(s), Denies nasal congestion, Denies nasal discharge, Denies post nasal drip and Denies sore throat Card Reports chest pain, Denies claudication, Denies leg edema, Reports dyspnea on exertion, Denies orthopnea and Denies paroxysmal nocturnal dyspnea Resp Denies change in phlegm color, Denies chest congestion, Denies cough, Denies hemoptysis, Denies excessive phlegm production, Denies pain on inspiration, Denies pain with cough, Reports dyspnea on exertion, Denies stridor and Reports wheezing Musc Denies myalgias Neuro Reports Normal hearing present and Denies headache(s) Endo Denies excessive sweating Rene/Lymph Denies lymphadenopathy Aller/Immun Denies itchy eyes, Reports seasonal rhinorrhea and Reports wheezing Physical Exam Vital Signs: Last Vital Signs Pulse 100 08/28/24 10:23 BP 136/70 08/28/24 10:23 Pulse Ox 96 08/28/24 10:23 Oxygen Delivery Method Room Air 08/28/24 10:23 BMI result Body Mass Index 34.3 Const General: cooperative, healthy appearing, comfortable, no acute distress, well developed and alert Nutritional Appearance: obese Orientation/consciousness: patient oriented x3 Limitations: no limitations HEENT Head: Yes normal to inspection, Yes normocephalic and Yes atraumatic Ears: hearing grossly normal bilaterally and external ears normal Eyes General: appearance normal, both eyes and all related structures Eyelids: Yes eyelids normal Sclerae: sclerae normal EOM: EOMs intact bilaterally Neck Neck: Yes normal visual inspection and Yes no lymphadenopathy Lymphatic: no lymphadenopathy noted Chest Chest palpation & inspection: normal inspection of the chest Resp Effort & Inspection: normal respiratory effort, able to speak in complete sentences, no audible wheezes, no cough, no stridor, not tachypneic, no tripod positioning and no use of accessory muscles Auscultation: clear to auscultation bilaterally Cardio Jugular venous distension: no JVD Rate: regular rate Rhythm: regular rhythm Skin Other: warm, dry General skin exam: no rashes or lesions noted Neuro General: patient oriented x3 Cranial nerves: Yes Normal hearing present Cognition (Neuro): normal cognition Gait exam (Neuro): Normal gait present Extrem General: Yes normal to inspection, Yes capillary refill normal, Yes no clubbing, cyanosis or edema and Yes no pedal edema Psych Appearance: grossly normal and well kempt Speech and movement: Normal speech and movement present and Clear speech present Affect: normal affect Attitude: cooperative Thought process: Normal thought process present Thought content: Normal thought content present Insight: Good insight present (Psych) Judgement: Good judgement present (Psych) Assessment & Plan Assessment & Plan (1) SHELDON (obstructive sleep apnea): Code(s): G47.33 - Obstructive sleep apnea (adult) (pediatric) Category: Medical (2) Dyspnea: Code(s): R06.00 - Dyspnea, unspecified Category: Medical (3) Environmental allergies: Code(s): Z91.09 - Other allergy status, other than to drugs and biological substances Category: Medical Plan Osman presents for management of CPAP therapy, currently awaiting delivery of machine. Once established will reach out to [facility] to obtain access to review compliance report. Patient reports symptoms suggestive of asthma however no prior history, will send for PFT to assess. Will also send for RAST testing as he notes worsening allergy symptoms. Will send for chest x-ray to assess for any underlying parenchymal condition. Will enter referral to cardiology for ongoing chest discomfort, prior EKG unremarkable. He is aware if chest pain is sustained to seek emergent care. All questions were answered and patient is in agreement of plan. Will follow-up in 8-10 weeks or sooner if needed. Orders: Orders Resp Allergy Profile Region I Today Z91.09 - Other allergy status, other than to drugs and biological substances Complete Blood Count Auto Diff Today Z91.09 - Other allergy status, other than to drugs and biological substances PFT pulmonary function test Today R06.00 - Dyspnea, unspecified XR chest 2V Today R05.9 - Cough, unspecified Immunoglobulin E Today Z91.09 - Other allergy status, other than to drugs and biological substances Referrals Cardiology Referral R07.82 - Intercostal pain Coding Level of Care Code New Pt Level 4 (63068) Diagnoses SHELDON (obstructive sleep apnea) G47.33 Dyspnea R06.00 Environmental allergies Z91.09
--- OUTSIDE RECORDS SUMMARY | 2024-08-28 11:53 | XMS_ITS | Clinical Summary ---
Author Organization [facility] Address [address] [place] [address] Care Team Providers Care Director Of Clinical Applications Name Role Phone Unavailable Primary Care Provider Unavailabl e Social History Tobacco Use Types Packs/Day Years Used Date Smoking Tobacco: Never Assessed Sex and Gender Information Value Date Recorded Sex Assigned at Not on file Legal Sex Male 7:02 PM EST Gender Identity Not on file Sexual [...] patient's age to complete this topic Insurance [facility] OUT OF STATE - PPO
--- OUTSIDE RECORDS SUMMARY | 2024-08-28 11:53 | XMS_ITS ---
Author Name [facility] Organization Unknown Encounters Encounter Type Encounter Reason Primary Diagnosis Location Date Ambulatory Encounter for preprocedural laboratory examination [facility] 04/27/2021 Care Team Organization Name Specialty Phone Email Start Date End Da te [facility] 04/27/2021 12/19/2023 [facility] 04/27/2021 04/27/2021
--- OUTSIDE RECORDS SUMMARY | 2024-08-28 11:53 | XMS_ITS | Clinical Summary ---
Author Organization 175 [facility] Address 175 [place] [address] Phone Care Team Providers Care Pipe Turner Name Role Phone Juan Pete Primary Care Provider Medications diclofenac (Voltaren Arthritis Pain) 1 % topical gel Apply 4 g topically 2 (two) times a day. 240 g 1 07/26/19 25 025 Active methylPREDNISo lone (MEDROL DOSPAK) 4 mg tablet Take 1 tablet (4 mg total) by mouth See administration instructions for 6 days. Use as directed by package instructions 21 tablet 07/26/19 25 025 Encounters Date Type Department Care Team Description 07/25/2024 2:00 PM EDT Consult Orthopedic Surgery [facility] 250 175 [facility] 250 [place] [phone] Edward Garcia, DPM Plantar fascial fibromatosis (Primary Dx); Pain in right foot; Tendonitis, Achilles, right; Tendonitis, Achilles, left from Last 3 Months Social History Tobacco Use Types Packs/Day Years Used Date Smoking Tobacco: Never Assessed Sex and Gender Information Value Date Recorded Sex Assigned at Not on file Legal Sex Male 4:34 AM EST Gender Identity Not on file Sexual Orientation Not on file Last Filed Vital Signs Vital Sign Reading Time Taken Comments Blood Pressure - - Pulse - - Temperature - - Respiratory Rate - - Oxygen Saturation - - Inhaled Oxygen Concentration - - Weight 116 kg (255 lb) 07/25/2024 1:37 PM EDT Height 182.9 cm (6') 07/25/2024 1:37 PM EDT Body Mass Index 34.58 07/25/2024 1:37 PM EDT Plan of Treatment Upcoming Encounters Date Type Department Care Team (Late st Contact Info) Description 08/28/2024 3:30 PM EDT Office Visit Orthopedic Surgery - [place] [address] [phone] Edward Garcia, DPM [address] [address] Health Maintenance Due Date Last Done Comments Hepatitis B Vaccines (1 of 3 - 19+ 3-dose series) 2003 Cholesterol Screening (Lipid Panel) 04/04/2022 Depression Screening 04/04/2022 HIV Screening 04/04/2022 Hepatitis C Screening 04/04/2022 Social Influencers of Health Screening 04/04/2022 COVID-19 Vaccine (2023-2 5 season) 2024 Influenza Vaccine (Season Ended) 2024 05/09/2023, 02/01/2019, 04/30/2016 DTaP,Tdap,and Td Vaccines (2 - Td or Tdap) 04/16/2025 04/16/2015 HIB Vaccines Aged Out No longer eligi [...] age to complete this topic Meningococcal B Vaccine Aged Out No l onger eligible based on patient's age to complete this topic Pneumococcal Vaccine: Pediatrics (0 to 5 Years) and At-Risk Patients (6 to 64 Years) Aged Out No longer eligible b ased on patient's age to complete this topic RSV Immunization Patients Under 20 months Aged Out No longer eligible b ased on patient's age to complete this topic Varicella Vaccines Aged Out No longer eligible based on patient's age to complete this topic Insurance [facility] Care Teams Pipe Turner Relationship Specialty Start Date End Date Juan Pete PA PCP - General Physician Neurology Professor 06/08/24
--- OUTSIDE RECORDS SUMMARY | 2024-08-28 11:53 | XMS_ITS | Encounter Summary ---
Author Organization [facility] Address [address] [place] [address] Care Team Providers Care Foam Tank Laminator Name Role Phone Unavailable Primary Care Provider Unavailabl e Encounter Details Date Type Department Care Team (Late st Contact Info) Description 03/31/2021 Erroneous Encounter [facility] CONVERSION DEPT [address] [place] [address] Michelle Miguel MD Social History Tobacco Use Types Packs/Day Years [...]
== END 2024-08-28 11:33 | disposition home or self-care (01) ==
LOC: HO.HPSW 10:21
PROVIDERS: PCP Physician Assistant; Referring Provider Physician Assistant; Visit Provider Nurse Practitioner Family
DX: G47.33 Obstructive sleep apnea (adult) (pediatric) (principal); R06.00 Dyspnea, unspecified; Z91.09 Other allergy status, other than to drugs and biological substances
CPT/HCPCS: 99204

== ENCOUNTER 2024-08-28 11:28 | Outpatient (REF) | payer BC, SELFPAY ==
--- OUTSIDE RECORDS SUMMARY | 2024-08-28 13:37 | XMS_ITS | Encounter Summary ---
Author Organization [facility] Address [address] [place] [address] Care Team Providers Care Rolling Chair Pusher Name Role Phone Unavailable Primary Care Provider Unavailabl e Encounter Details Date Type Department Care Team (Late st Contact Info) Description 03/31/2021 Erroneous Encounter [facility] CONVERSION DEPT [address] [place] [address] Michelle Miguel MD Social History Tobacco Use [...]
--- OUTSIDE RECORDS SUMMARY | 2024-08-28 13:37 | XMS_ITS | Clinical Summary ---
Author Organization 175 [facility] Address 175 [place] [address] Phone Care Team Providers Care Canteen Operator Name Role Phone Juan Pete Primary Care [...] 07/25/2024 2:00 PM EDT Consult Orthopedic Surgery [facility] 250 175 [facility] 250 [place] [phone] Edward Garcia, DPM Plantar fascial fibromatosis (Primary [...] PM EDT Office Visit Orthopedic Surgery - [place] [address] [phone] Edward Garcia, DPM [address] [address] Health Maintenance Due Date Last Done Comments [...] patient's age to complete this topic Insurance [facility] Care Teams Canteen Operator Relationship Specialty Start Date End Date Juan Pete PA PCP - General Physician Press Set Up 06/08/24
--- OUTSIDE RECORDS SUMMARY | 2024-08-28 13:37 | XMS_ITS | Clinical Summary ---
Author Organization [facility] Address [address] [place] [address] Care Team Providers Care Cardiac Cath Technologist Name Role Phone Unavailable Primary Care Provider [...] patient's age to complete this topic Insurance [facility] OUT OF STATE - PPO
[2024-08-28 14:21] LABS: MANUAL DIFF FLAG NO
[2024-08-28 14:26] LABS: Basophils Absolute Auto 0.1 X10*3/uL (0.0-0.2); Basophils Percent Auto 0.8 % (0-2); Eosinophils Absolute Auto 0.2 X10*3/uL (0.0-0.4); Eosinophils Percent Auto 2.1 % (0-4); Hematocrit 47.5 % (42.0-52.0); Hemoglobin 15.9 g/dl (14.0-18.0); Imm Gran Abs Auto 0.02 X10*3/uL (0.00-0.03); Imm Gran Pct Auto 0.3 % (0.0-0.4); Lymphocytes Absolute Auto 2.3 X10*3/uL (1.2-4.9); Lymphocytes Percent Auto 29.7 % (20-40); Mean Corpuscular HGB Conc 33.5 g/dl (31.0-36.0); Mean Corpuscular Hemoglobin 28.9 pg (27.0-33.0); Mean Corpuscular Volume 86.4 fL (80.0-98.0); Mean Platelet Volume 9.9 fL (9.4-12.4); Monocytes Absolute Auto 0.6 X10*3/uL (0.1-1.2); Monocytes Percent Auto 8.3 % (2-11); Neutrophils Absolute Auto 4.6 x10*3/uL (2.0-8.3); Neutrophils Percent Auto 58.8 % (45-73); Platelet Count 380 X10*3/uL (160-400); Red Cell Distribution Width 12.9 % (11.0-16.0); White Blood Count 7.8 X10*3/uL (4.8-10.8)
[2024-08-28 14:54] LABS: Alanine Aminotransferase 40 U/L (0-40); Albumin Level 4.3 g/dL (3.5-5.0); Alkaline Phosphatase 148 U/L (39-117); Anion Gap 11 (12-20); Aspartate Amino Transferase 30 U/L (5-37); Bilirubin Total 0.6 mg/dL (0.0-1.0); Blood Urea Nitrogen 12 mg/dL (9-16); Calcium 8.8 mg/dL (8.4-10.2); Carbon Dioxide 24 mmol/L (22-29); Chloride 108 mmol/L (96-108); Estimated Glomerular Filt Rate > 60; Glucose Fasting 79 mg/dL (60-99); Sodium 139 mmol/L (135-145); Total Protein 7.3 g/dL (6.5-8.0)
[2024-09-05 23:13] LABS: Class Alternaria alternata 0; Class Aspergillus fumigatus 0; Class Bermuda Grass 2; Class Birch 4; Class Cat Dander 0; Class Cladosporium herbarum 0; Class Cockroach 2; Class Common Ragweed 2; Class Cottonwood 2; Class Derm. pterony 3; Class Dermatophagoides farinae 3; Class Dog Dander 0/1; Class Elm 2; Class Maple Box Elder 3; Class Mountain Cedar 1; Class Mouse Urine Protein 0; Class Mugwort 1; Class Oak 3; Class Penicillium crysogenum 0; Class Rough Pigweed 2; Class Sheep Sorrel 2; Class Sycamore 2; Class Timothy Grass 1; Class Walnut Tree 2; Class White Ash 2; Class White Mulberry 0/1; E001 - IgE Cat Dander <0.10 kU/L; E072-IgE Mouse Urine <0.10 kU/L; G002 IgE Bermuda Grass 2.66 kU/L; G006 - IgE Timothy Grass 0.66 kU/L; I006-IgE Cockroach, German 1.95 kU/L; Immunoglobulin E 297 kU/L (<OR=114); M001 IgE Penicillium chrysogen <0.10 kU/L; M002 - IgE Cladosporium herbar <0.10 kU/L; M003 - IgE Aspergillus fumigat <0.10 kU/L; M006 - IgE Alternaria alternat <0.10 kU/L; T001 IgE Maple/Box Elder 5.94 kU/L; T006 - IgE Cedar, Mountain 0.41 kU/L; T008 IgE Elm, American 2.43 kU/L; T010 - IgE Walnut 3.22 kU/L; T011 - IgE Maple Leaf Sycamore 1.97 kU/L; T014 - IgE Cottonwood 2.19 kU/L; T015 - IgE Ash, White 3.04 kU/L; T070 - IgE White Mulberry 0.16 kU/L; W001 - IgE Ragweed, Short 2.03 kU/L; W006 - IgE Mugwort 0.61 kU/L; W018 IgE Sheep Sorrel 2.94 kU/L
[2024-09-14 08:10] LABS: Rast Allergen SEE COMMENTS
== END 2024-08-28 11:29 | disposition home or self-care (01) ==
LOC: HO.WFDLDS 11:28
PROVIDERS: Referring Provider Nurse Practitioner Family; Visit Provider Physician Assistant
DX: I10 Essential (primary) hypertension (principal); R06.00 Dyspnea, unspecified; Z91.09 Other allergy status, other than to drugs and biological substances
CPT/HCPCS: 36415; 80053; 82785; 85025; 85027; 86003

== ENCOUNTER 2024-10-10 14:05 | Outpatient (REF) | payer BC, SELFPAY ==
--- NOTE | 2024-10-10 14:08 | PFT_ITS ---
Flows: FEV1: 97 % of predicted at 4.35 L FVC: 96 % of predicted at 5.39 L FEV1/FVC: 81 % Bronchodilator response: Absent Volumes: Total lung capacity: 94 % of predicted at 7.16 L Residual volume: 103 % of predicted at 1.77 L Slow vital capacity: 91 % of predicted at 5.39 L Expiratory reserve volume: 38 % of predicted at 0.66 L Diffusion capacity: Normal Impression: No obstructive or restrictive ventilatory defects. No bronchodilator response. Decreased expiratory reserve volume suggests extrathoracic restriction likely secondary to abdominal obesity. MTDD
[2024-10-10 14:44] VITALS: PULSE 97; O2SAT 98
--- OUTSIDE RECORDS SUMMARY | 2024-10-10 16:10 | XMS_ITS | Clinical Summary ---
Author Organization 175 [facility] Address 175 [place] [address] Phone Care Team Providers Care Starting Gate Driver Name Role Phone Juan Pete Primary Care Provider Allergies Active Allergy Reactions Criticality Noted Date Comments Shellfish Derived 02/28/2024 Other Reaction(s): FACIAL SWELLING Shrimp 03/14/2020 Medications diclofenac (Voltaren Arthritis Pain) 1 % topical gel Apply 4 g topically 2 (two) times a day. 240 g 1 09/24/19 Encounters Date Type Department Care Team Description 09/27/2024 5:00 PM EDT Evaluation [address] [phone] Denis Wayne, PT Tendonitis, Achilles, right; Tendonitis, Achilles, left; Plantar fascial fibromatosis; Follow-up exam 08/28/2024 3:30 PM EDT Office Visit Orthopedic Surgery [place] [address] [phone] Edward Garcia DPM Tendonitis, Achilles, right (Primary Dx); Tendonitis, Achilles, left; Plantar fascial fibromatosis; Follow-up exam 07/25/2024 2:00 PM EDT Consult Orthopedic [place] [address] [phone] Edward Garcia DPM Plantar fascial fibromatosis (Primary Dx); Pain in right foot; Tendonitis, Achilles, right; Tendonitis, Achilles, left from Last 3 Months Social History Tobacco Use Types Packs/Day Years Used Date Smoking Tobacco: Never Assessed Sex and Gender Information Value Date Recorded Sex Assigned at Male 08/28/2024 4:37 PM EDT Legal Sex Male 4:34 AM EST Gender Identity Male 08/28/2024 4:37 PM EDT Sexual Orientation Straight 08/28/2024 4: 37 PM EDT Last Filed Vital Signs Vital Sign Reading [...] Care Team (Late st Contact Info) Description 10/15/2024 6:00 PM EDT Treatment [address] [phone] Eladio Mcdowell, PHOTOLITH OPERATOR 10/18/2024 6:00 PM EDT Treatment [address] [phone] Eladio Mcdowell, PHOTOLITH OPERATOR 10/22/2024 6:00 PM EDT Treatment [address] [address] Eladio Mcdowell, PHOTOLITH OPERATOR 10/24/2024 5:00 PM EDT Treatment [address] [phone] Denis Wayne, PT 10/29/2024 6:00 PM EDT Treatment [address] [phone] Eladio Mcdowell, PHOTOLITH OPERATOR 11/01/2024 6:00 PM EDT Treatment [address] [phone] Manuel Corcoran, PHOTOLITH OPERATOR 11/05/2024 6:00 PM EDT Treatment [facility] [address] [phone] Eladio Mcdowell, PHOTOLITH OPERATOR 11/08/2024 5:30 PM EDT Treatment [facility] [address] [phone] Denis Wayne, PT 11/27/2024 3:30 PM EDT Office Visit Orthopedic Surgery [facility] [address] [phone] Edward Garcia, DPM [address] [address] Health Maintenance Due Date Last Done Comments Hepatitis B Vaccines (1 of 3 - 19+ 3-dose series) 2003 Cholesterol Screening (Lipid Panel) 04/04/2022 Depression Screening 04/04/2022 HIV Screening 04/04/2022 Hepatitis C Screening 04/04/2022 Social Influencers of Health Screening 04/04/2022 COVID-19 Vaccine (1 - 2023-2 5 season) 2024 Influenza Vaccine (Season Ended) [...] on patient's age to complete this topic Goals Goal Patient Goal Type Associated Problems Recent Progress Patient-Stated? Author PT LTGs General No Denis Wayne, PT Note: Pt will report no foot/ankle pain B for first 4 hours of work day Pt will increase B ankle DF PROM to >10 degrees Pt will report no foot/ankle pain B with MMTs Pt will be independent with HEP Procedures Procedure Name Priority Date/Time Associated Diagnosis Comments XR FOOT 3+ VIEWS BILAT Routine 08/28/2024 3:44 PM EDT Follow-up exam from Last 3 Months Results * XR Foot 3+ Views bilat (08/28/2024 3:44 PM EDT) Anatomical Region Laterality Modality Lower Extremities, Foot Bilateral Computed Radiography Narrative 08/28/2024 5:35 PM EDT Right foot ??3 views No fracture. No radiopaque foreign joint spaces normal ?? Foot position Pes planus with Talus navicular uncovering decreased calcaneal inclination anterior displaced symes line talus navicular joint to calcaneal cuboid joint ?? Left foot 3 views No fracture. No radiopaque foreign joint spaces normal ?? Foot position Pes planus with Talus navicular uncovering decreased calcaneal inclination anterior displaced symes line talus navicular joint to calcaneal cuboid joint ?? Edward Garcia DPRudy IMG XR PROCEDURES Final R esult from Last 3 Months Insurance [facility] Care Teams Starting Gate Driver Relationship Specialty Start Date End Date Juan Pete PA PCP - General Physician Doughnut Glazier 06/08/24
== END 2024-10-10 14:06 | disposition home or self-care (01) ==
LOC: HO.RESP 14:05
PROVIDERS: PCP Physician Assistant; Visit Provider Nurse Practitioner Family
DX: R06.00 Dyspnea, unspecified (principal)
CPT/HCPCS: 94010; 94640; 94727; 94729

== ENCOUNTER → 2024-10-10 14:08 | Outpatient (BNV) | payer BC, SELFPAY | PROVIDERS: PCP Physician Assistant; Visit Provider Internal Medicine Pulmonary Disease | DX: R06.00 Dyspnea, unspecified (principal) | CPT/HCPCS: 94060; 94727; 94729 ==

== ENCOUNTER 2024-10-30 15:56 | Outpatient (AMB) | payer BC, SELFPAY ==
[2024-10-30 15:57] VITALS: BP 128/80; PULSE 105; O2SAT 95; BMI 34.4
--- NOTE | 2024-10-30 15:57 | MHC.OFFVIS ---
Vital Signs 10/30/24 15:57 Height 6 ft Weight 253 lb 6 oz BMI 34.4 BP 128/80 Blood Pressure Location Rt brachial Position Sitting Pulse 105 H Pulse Source Pulse Oximeter Pulse Oximetry (%) 95 Oxygen Delivery Method Room Air Intake Visit Reasons: Obstructive sleep apnea Allergies No Known Allergies (No Known Allergies*) Allergy (Verified 10/30/24 15:59) HPI HPI Obstructive sleep apnea: Details: Osman is a pleasant 39-year-old male, former minimal smoker with underlying severe obstructive sleep apnea. He was referred by PCP for management of CPAP therapy. He initially underwent sleep study for daytime fatigue, non restorative sleep and loud snoring. An order for CPAP in APAP mode with pressures 6-20 cm H2O was sent to [facility] for treatment of severe sleep apnea, AHI 39, with minimal nocturnal hypoxemia, lowest 82%, less than 88% for 4.6 minutes. He received initial email to set up CPAP therapy however continues to wait for delivery of machine. Previously he reported dyspnea, chest tightness and wheezing for the last few months without any known triggers, however denies symptoms at this time. Today he presents to review PFT and [facility] Medical History Lumbar disc disease with radiculopathy HTN (hypertension) Sleep apnea CABRERA (generalized anxiety disorder) Mild recurrent major depression Class 1 obesity with body mass index (BMI) of 34.0 to 34.9 in adult Right sided sciatica Surgical History History of shoulder surgery Family History Father Diabetes Hypertension Mother Diabetes Hypertension Brother Brain aneurysm Stroke Social History Housing: House Are you a primary care provider to a significant other at home: No Do you presently have visiting nurse or other home services: No Alcohol intake: current Alcohol intake frequency: holidays/special occasions only Alcohol type: beer and wine Patient Tobacco Use Status: Former Tobacco user Tobacco use type: Cigarette e-Cigarette/Vaping Use: Never Used Second Hand Smoke Exposure: No service: No Current occupational status: employed 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 Cognitive needs: No Hearing needs: No Vision needs: No Review of Systems Const Denies chills, Denies excessive sweating, Denies fever(s), Denies headache(s) and Denies night sweats Eyes Denies dry eyes, Denies irritation and Denies itchy eyes ENT Reports Normal hearing present, Denies headache(s), Denies nasal congestion, Denies nasal discharge, Denies post nasal drip and Denies sore throat Card Reports chest pain, Denies claudication, Denies leg edema, Denies dyspnea on exertion, Denies orthopnea and Denies paroxysmal nocturnal dyspnea Resp Denies change in phlegm color, Denies chest congestion, Denies cough, Denies hemoptysis, Denies excessive phlegm production, Denies pain on inspiration, Denies pain with cough, Denies dyspnea on exertion, Denies stridor and Denies wheezing Musc Denies myalgias Neuro Reports Normal hearing present and Denies headache(s) Endo Denies excessive sweating Rene/Lymph Denies lymphadenopathy Aller/Immun Denies itchy eyes and Denies wheezing Physical Exam Vital Signs: Last Vital Signs Pulse 105 H 10/30/24 15:57 BP 128/80 10/30/24 15:57 Pulse Ox 95 10/30/24 15:57 Oxygen Delivery Method Room Air 10/30/24 15:57 BMI result Body Mass Index 34.4 Const General: cooperative, healthy appearing, comfortable, no acute distress, well developed and alert Nutritional Appearance: obese Orientation/consciousness: patient oriented x3 Limitations: no limitations HEENT Head: Yes normal to inspection, Yes normocephalic and Yes atraumatic Ears: hearing grossly normal bilaterally and external ears normal Eyes General: appearance normal, both eyes and all related structures Eyelids: Yes eyelids normal Sclerae: sclerae normal EOM: EOMs intact bilaterally Neck Neck: Yes normal visual inspection and Yes no lymphadenopathy Lymphatic: no lymphadenopathy noted Chest Chest palpation & inspection: normal inspection of the chest Resp Effort & Inspection: normal respiratory effort, able to speak in complete sentences, no audible wheezes, no cough, no stridor, not tachypneic, no tripod positioning and no use of accessory muscles Auscultation: clear to auscultation bilaterally Cardio Jugular venous distension: no JVD Rate: regular rate Rhythm: regular rhythm Skin Other: warm, dry General skin exam: no rashes or lesions noted Neuro General: patient oriented x3 Cranial nerves: Yes Normal hearing present Cognition (Neuro): normal cognition Gait exam (Neuro): Normal gait present Extrem General: Yes normal to inspection, Yes capillary refill normal, Yes no clubbing, cyanosis or edema and Yes no pedal edema Psych Appearance: grossly normal and well kempt Speech and movement: Normal speech and movement present and Clear speech present Affect: normal affect Attitude: cooperative Thought process: Normal thought process present Thought content: Normal thought content present Insight: Good insight present (Psych) Judgement: Good judgement present (Psych) Assessment & Plan Assessment & Plan (1) SHELDON (obstructive sleep apnea): Code(s): G47.33 - Obstructive sleep apnea (adult) (pediatric) Category: Medical (2) Environmental allergies: Code(s): Z91.09 - Other allergy status, other than to drugs and biological substances Category: Medical Plan Discussed with the patient the importance of obtaining the CPAP machine for his severe sleep apnea and the need to follow up after a period of use to evaluate its effectiveness. He is agreeable to contact the CPAP supplier to expedite delivery. We also reviewed his allergy test results and discussed environmental control measures, including the use of nasal sprays and a dehumidifier. Reviewed PFT which revealed no obstructive or restrictive ventilatory defects. No bronchodilator response. Decreased expiratory reserve volume suggests extrathoracic restriction likely secondary to abdominal obesity. Discussed importance of weight loss. DLCO normal. All questions were answered and patient is in agreement of plan. Will follow-up in 8-10 weeks or sooner if needed. Coding Level of Care Code Est Pt Level 4 (96291) Diagnoses SHELDON (obstructive sleep apnea) G47.33 Environmental allergies Z91.09
--- OUTSIDE RECORDS SUMMARY | 2024-10-30 16:22 | XMS_ITS | Clinical Summary ---
Author Organization 175 [facility] Address 175 [place] [address] Phone Care Team Providers Care Gang Knife Fish Chopper Name Role Phone Juan Pete Primary Care Provider Allergies Active Allergy Reactions Criticality Noted Date Comments Shellfish Derived 02/28/2024 Other Reaction(s): FACIAL SWELLING Shrimp 03/14/2020 Medications No known medications Encounters Date Type Department Care Team Description 10/29/2024 6:00 PM EDT Treatment [address] [phone] Eladio Mcdowell, INSPECTOR Tendonitis, Achilles, right (Primary Dx); Tendonitis, Achilles, left 10/24/2024 5:00 PM EDT Treatment [address] [phone] Denis Wayne, PT Tendonitis, Achilles, right (Primary Dx); Tendonitis, Achilles, left 10/22/2024 6:00 PM EDT Treatment [address] [phone] Eladio Mcdowell, INSPECTOR Tendonitis, Achilles, right (Primary Dx); Tendonitis, Achilles, left 10/18/2024 6:00 PM EDT Treatment [address] [phone] Eladio Mcdowell, INSPECTOR Tendonitis, Achilles, right (Primary Dx); Tendonitis, Achilles, left 09/27/2024 5:00 PM EDT Evaluation [facility] [address] [phone] Denis Wayne, PT Tendonitis, Achilles, right; Tendonitis, Achilles, left; Plantar fascial fibromatosis; Follow-up exam 08/28/2024 3:30 PM EDT Office Visit Orthopedic Surgery [facility] 250 175 [facility] 250 [place] [phone] Edward Garcia, DPM Tendonitis, Achilles, right (Primary Dx); Tendonitis, Achilles, left; Plantar fascial fibromatosis; Follow-up exam from Last 3 Months Social History Tobacco [...] Care Team (Late st Contact Info) Description 11/01/2024 6:00 PM EDT Treatment [facility] [address] [phone] Manuel Corcoran PTA 11/05/2024 6:00 PM EDT Treatment [facility] [address] [phone] Eladio Mcdowell, INSPECTOR 11/08/2024 5:30 PM EDT Treatment [facility] [address] [phone] Denis Wayne, PT 11/27/2024 3:30 PM EDT Office Visit Orthopedic Surgery - [place] 250 175 [facility] 250 [place] [phone] Edward Garcia, DPM [address] [address] Health Maintenance Due Date Last Done Comments [...] Patient-Stated? Author PT LTGs General No Denis Wayne PT Note: Pt will report no foot/ankle [...] Narrative 08/28/2024 5:35 PM EDT Right foot 3 views No fracture. No radiopaque foreign joint spaces normal Foot position Pes planus with Talus navicular uncovering decreased calcaneal inclination anterior displaced symes line talus navicular joint to calcaneal cuboid joint Left foot 3 views No fracture. No radiopaque foreign joint spaces normal Foot position Pes planus with Talus navicular uncovering decreased calcaneal inclination anterior displaced symes line talus navicular joint to calcaneal cuboid joint us Edward Garcia DPM IMG XR PROCEDURES Final R esult from Last 3 Months Insurance [facility] Care Teams Gang Knife Fish Chopper Relationship Specialty Start Date End Date Juan Pete PA [address] [place] [phone] PCP - General Physician Bleacher Kraft Pulp 10/16/24
--- OUTSIDE RECORDS SUMMARY | 2024-10-30 16:22 | XMS_ITS ---
Author Name [facility] Encounters Encounter Type Encounter Reason Primary Diagnosis Location Date Ambulatory Encounter for preprocedural laboratory examination [email or web address] 04/27/2021 Care Team Organization Name Specialty Phone Email Start Date End Da te [email or web address] 04/27/2021 12/19/2023 [email or web address] 04/27/2021 04/27/2021
--- OUTSIDE RECORDS SUMMARY | 2024-10-30 16:22 | XMS_ITS | Encounter Summary ---
Author Organization [facility] Address [address] [place] [address] Care Team Providers Care Commissioned Sales Associate Name Role Phone Unavailable Primary Care Provider Unavailabl e Encounter Details Date Type Department Care Team (Late st Contact Info) Description 03/31/2021 Erroneous Encounter [facility] CONVERSION DEPT [address] [place] [address] Michelle Miguel MD Social History Tobacco Use [...]
== END 2024-10-30 16:13 | disposition home or self-care (01) ==
LOC: HO.HPSW 15:56
PROVIDERS: PCP Physician Assistant; Visit Provider Nurse Practitioner Family
DX: G47.33 Obstructive sleep apnea (adult) (pediatric) (principal); Z91.09 Other allergy status, other than to drugs and biological substances
CPT/HCPCS: 99214

== ENCOUNTER 2024-11-20 15:38 | Outpatient (AMB) | payer BC, SELFPAY ==
--- NOTE | 2024-11-20 15:43 | A.OFFPC_ITS ---
Vital Signs 11/20/24 15:45 Height 6 ft Weight 246 lb 8 oz BMI 33.4 BP 132/60 Blood Pressure Location Lt brachial Position Sitting Pulse 91 Pulse Source Pulse Oximeter Temp 97.5 F Temp Source Temporal Artery Scan Pulse Oximetry (%) 97 Oxygen Delivery Method Room Air Intake Visit Reasons: Follow-up labs Intake Note: Patient is here to follow up on Lab results. Ice Cream Dispenser Required: No Oracle Application Architect: Not Required per policy Accompanied by: Self / Same As Patient Allergies No Known Allergies (No Known Allergies*) Allergy (Verified 11/20/24 15:54) Medication List - Last Reconciled 11/20/24 by Juan Pete PA-C CPAP (CPAP Machine/Device) Need for auto PAP 6 to 20 cm of water Tobacco use date assessed: 11/20/24 Dental Screening Dental Screen Date: 05/17/24 HPI Follow-up labs HPI Details Patient is a 39-year-old male here today for a follow-up visit ? Patient has a past medical history significant for obesity, generalized an xiety disorder and major depressive disorder, lumbar disc disease, hypertension Obstructive sleep apnea: Has been recently diagnosed with severe obstructive sleep apnea and has followed up with pulmonology in his started on CPAP machine. but he has been waiting for over six months for its approval and delivery. He reports severe sleep disturbances, including difficulty breathing at night and daytime fatigue, which have significantly impacted his quality of life. The patient also suffers from allergic rhinitis, with high allergen sensitivity to environmental factors such as birch trees. He experiences symptoms like nasal congestion and difficulty breathing, particularly at night, but has not been using daily allergy medication. .. Class 1 obesity: Has lost a few lb since last office visit. Has not been able to be to physically active. Today's BMI at 33.8 . Hypertension: Has not started blood pressure medication, blood pressure today in office normal. He has been able to manage his blood pressure with lifestyle modifications. Laboratory Tests 08/28/24 11:29 D. farinae Allrgen IgE 13.30 H D. pteronyssinus I gE Cl 14.40 H Black Keene Tree 3.22 H Hood Tree Al lrg 2.19 H Silver Birch IgE A b 20.10 H Common Ragweed All ergen 2.03 H IgE 297 H PFSH Medical History Lumbar disc disease with radiculopathy HTN (hypertension) Sleep apnea CABRERA (generalized anxiety disorder) Mild recurrent major depression Class 1 obesity with body mass index (BMI) of 34.0 to 34.9 in adult Right sided sciatica Surgical History History of shoulder surgery Family History Father Diabetes Hypertension Mother Diabetes Hypertension Brother Brain aneurysm Stroke Social History Housing: House Are you a primary resident care manager rn to a significant other at home: No Do you presently have visiting nurse or other home services: No Alcohol intake: current Alcohol intake frequency: holidays/special occasions only Alcohol type: beer and wine Patient Tobacco Use Status: Former Tobacco user Tobacco use type: Cigarette e-Cigarette/Vaping Use: Never Used Second Hand Smoke Exposure: Yes service: No Current occupational status: employed 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 Cognitive needs: No Hearing needs: No Vision needs: No Questionnaire Thrive Questionnaire Date Thrive assessed: 05/17/24 I am a: Patient What is your living situation today?: I have a place to live, but I am worried about losing it in the future Within the past 12 months, did the food you bought not last and you didn't have the money to get more?: Never true Within the past 12 months, did you worry whether your food would run out before you got money to buy more?: Never true Do you have trouble paying for medicines?: No Do you have trouble getting transportation to medical appointments?: No Do you have trouble paying your heating and electricity bill?: No Do you have trouble taking care of your child, family member or friend?: No Do you have trouble with day-to-day activities such as bathing, preparing meals, shopping, managing finances, etc.?: No Are you currently unemployed and looking for a job?: No Are you interested in more education?: Yes Please select the resources that you would like help with: None Currently or been in a relationship where the following occur: No concerns reported THRIVE Score: 1 CABRERA-7 AMB Questionnaire CABRERA-7 Date CABRERA - 7 assessed: 05/17/24 Source: Developed by Drs. Denis Dougherty, Kayla Fraser, Amilcar Ramos and colleagues, with an educational jayy from [employer]. Review of Systems Const Denies headache(s) Eyes Denies loss of vision ENT Denies vertigo, Denies dizziness, Denies headache(s), Reports sinus pain, Reports sinus pressure and Denies sore throat Card Denies chest pain, Denies leg edema and Denies lightheadedness Resp Denies cough, Denies hemoptysis and Denies wheezing GI Denies abdominal pain, Denies melena, Denies constipation, Denies diarrhea and Denies vomiting Denies dysuria, Denies urinary frequency and Denies urinary urgency Musc Denies arthralgias, Denies joint swelling, Denies numbness and Denies tingling Neuro Denies Abnormal speech present, Denies behavioral changes, Denies vertigo, Denies dizziness, Denies headache(s), Denies loss of vision, Denies memory loss, Denies numbness and Denies tingling Psych Denies anxiety, Denies behavioral changes, Denies depression, Denies memory loss and Denies panic attacks Rene/Lymph Denies easy bleeding and Denies easy bruising Aller/Immun Denies wheezing Physical exam (Primary Care) Vital Signs: Last Vital Signs Temp 97.5 F 11/20/24 15:45 Pulse 91 11/20/24 15:45 BP 132/60 11/20/24 15:45 Pulse Ox 97 11/20/24 15:45 Oxygen Delivery Method Room Air 11/20/24 15:45 BMI result Body Mass Index 33.4 Tobacco/Smoking Status: Tobacco use Status Tobacco use date assessed 11/20/24 11/20/24 15:52 Patient Tobacco Use Status Former Tobacco user 11/20/24 15:44 Tobacco use type Cigarette 11/20/24 15:44 e-Cigarette/Vaping Use Never Used 11/20/24 15:44 Thrive Assessment: Date of Thrive Assessment Date Thrive assessed 05/17/24 11/20/24 15:44 Currently or been in a relationship where the following occur: No concerns reported Const General: healthy appearing, no acute distress, alert and awake Nutritional Appearance: well nourished Orientation/consciousness: oriented to person, oriented to place and oriented to time HENUT Ears: TM's normal bilaterally General nose exam: Normal nasal mucous membranes and turbinates present Eyes Conjunctivae: conjunctivae normal Sclerae: sclerae normal Pupils: Equal, round and reactive pupils present Neck Neck: Yes no lymphadenopathy and Yes no JVD Thyroid: Thyroid normal Carotids: no bruits Resp Effort & Inspection: normal respiratory effort and not tachypneic Auscultation: no crackles, no rales, no rhonchi and no wheezes Cardio Rate: regular rate Rhythm: regular rhythm Heart sounds: no murmurs and normal S1 and S2 GI Palpation (GI): Soft to palpation, nontender, no hepatomegaly and no splenomegaly Auscultation: normal bowel sounds Skin General skin exam: no rashes or lesions noted and dry skin Neuro General: oriented to person, oriented to place and oriented to time Cranial nerves: Yes Equal, round and reactive pupils present Speech: No Abnormal speech present Gait exam (Neuro): Normal gait present Motor exam (neuro): no tremor noted Extrem Right upper extremity: full ROM Left upper extremity: full ROM Right lower extremity: full ROM; no edema Left lower extremity: full ROM; no edema Psych Mental Status: mental status grossly normal Speech and movement: Normal speech and movement present Affect: normal affect Attitude: cooperative Thought process: Normal thought process present Coding Level of Care Code Est Pt Level 4 (62042) Diagnoses Environmental allergies Z91.09 SHELDON (obstructive sleep apnea) G47.33 Primary hypertension I10 Hypertension type: primary hypertension Assessment & Plan Assessment & Plan (1) Environmental allergies: Code(s): Z91.09 - Other allergy status, other than to drugs and biological substances Category: Medical Plan: The patient experiences allergic rhinitis with significant environmental allergen sensitivity. A daily allergy medication and a referral to an preconstruction manager for potential immunotherapy were discussed to manage symptoms. (2) SHELDON (obstructive sleep apnea): Code(s): G47.33 - Obstructive sleep apnea (adult) (pediatric) Category: Medical Plan: The patient has been diagnosed with severe obstructive sleep apnea, and a CPAP machine has been recommended to improve sleep quality and reduce daytime fatigue. Due to delays in obtaining the CPAP machine, a paper prescription was provided to expedite the process. (3) HTN (hypertension): Code(s): I10 - Essential (primary) hypertension Category: Medical Qualifiers: Hypertension type: primary hypertension Qualified Code(s): I10 - Essential (primary) hypertension Plan: Patient's blood pressure acceptable today in office. Not on any blood pressure medication at this time. He has been trying to work on lifestyle and dietary modifications. Goal blood pressure remain below 140/90 Orders: Referrals Allergy & Immunology Referral Z91.09 - Other allergy status, other than to drugs and biological substances Medications: New montelukast 10 mg PO DAILY 90 tabs 1RF 90 days Z91.09 - Other allergy status, other than to drugs and biological substances albuterol sulfate 90 mcg/actuation 1 inh inhalation QID 8.5 grams 3RF 30 days R06.00 - Dyspnea, unspecified Refilled CPAP (CPAP Machine/Device) Need for auto PAP 6 to 20 cm of water 1 ea 0RF G47.33 - Obstructive sleep apnea (adult) (pediatric)
[2024-11-20 15:45] VITALS: BP 132/60; PULSE 91; TEMP 36.4; O2SAT 97; BMI 33.4
--- OUTSIDE RECORDS SUMMARY | 2024-11-20 16:27 | XMS_ITS | Clinical Summary ---
Author Organization [address] [facility] Address [address] [place] [address] Phone Care Team Providers Care Lock Operator Name Role Phone Juan Pete Primary Care Provider Allergies Active Allergy Reactions Criticality Noted Date Comments Shellfish Derived 02/28/2024 Other Reaction(s): FACIAL SWELLING Shrimp 03/14/2020 Medications No known medications Encounters Date Type Department Care Team Description 11/08/2024 5:30 PM EDT Treatment [address] [phone] Denis Wayne, PT Tendonitis, Achilles, right (Primary Dx); Tendonitis, Achilles, left 11/01/2024 6:00 PM EDT Treatment [address] [phone] Manuel Corcoran, CRYPTOLOGICAL TECHNICIAN Tendonitis, Achilles, right (Primary Dx); Tendonitis, Achilles, left 10/29/2024 6:00 PM EDT Treatment [address] [phone] Eladio Mcdowell, CRYPTOLOGICAL TECHNICIAN Tendonitis, Achilles, right (Primary Dx); Tendonitis, Achilles, left 10/24/2024 5:00 PM EDT Treatment [address] [phone] Denis Wayne, PT Tendonitis, Achilles, right (Primary Dx); Tendonitis, Achilles, left 10/22/2024 6:00 PM EDT Treatment [address] [phone] Eladio Mcdowell M, CRYPTOLOGICAL TECHNICIAN Tendonitis, Achilles, right (Primary Dx); Tendonitis, Achilles, left 10/18/2024 6:00 PM EDT Treatment [address] [phone] Eladio Mcdowell M, CRYPTOLOGICAL TECHNICIAN Tendonitis, Achilles, right (Primary Dx); Tendonitis, Achilles, left 09/27/2024 5:00 PM EDT Evaluation [address] [phone] Denis Wayne, TOMAS Tendonitis, Achilles, right; Tendonitis, Achilles, left; Plantar fascial fibromatosis; Follow-up exam 08/28/2024 3:30 PM EDT Office Visit Orthopedic Surgery [address] [phone] Edward Garcia, DPM Tendonitis, Achilles, right (Primary [...] Care Team (Late st Contact Info) Description 11/27/2024 3:30 PM EDT Office Visit Orthopedic [address] [phone] Edward Garcia, DPM [address] [address] 12/04/2024 5:00 PM EDT Treatment [facility] [address] [phone] Manuel Corcoran, CRYPTOLOGICAL TECHNICIAN 12/11/2024 5:00 PM EDT Treatment [facility] [address] [phone] Manuel Corcoran, CRYPTOLOGICAL TECHNICIAN 12/18/2024 5:00 PM EDT Treatment [facility] [address] [phone] Manuel Corcoran, CRYPTOLOGICAL TECHNICIAN 12/26/2024 5:30 PM EDT Treatment [facility] [address] [phone] Denis Wayne, PT Health Maintenance Due Date Last Done Comments Hepatitis B Vaccines (1 of 3 - 19+ 3-dose series) 2003 Cholesterol Screening (Lipid Panel) 04/04/2022 HIV Screening 04/04/2022 Hepatitis C Screening 04/04/2022 Social Influencers of Health Screening 04/04/2022 COVID-19 Vaccine (1 - 2023-2 5 season) 2024 Depression Screening 05/02/2024 Influenza Vaccine (#1) 2024 , 02/01/2019, 04/30/2016 DTaP,Tdap,and Td Vaccines (2 - [...] 5 Years) and At-Risk Patients (6 to 49 [...] for first 4 hours of work day - not met Pt will increase B ankle DF PROM to >10 degrees - met Pt will report no foot/ankle pain B with MMTs - not met Pt will be independent with HEP - ongoing Procedures Procedure Name Priority Date/Time Associated Diagnosis [...] talus navicular joint to calcaneal cuboid joint Edward Garcia DPM IMG XR PROCEDURES Final R esult from Last 3 Months Insurance [facility] Care Teams Lock Operator Relationship Specialty Start Date End Date Juan Pete PA [address] [place] [address] PCP - General Physician Diesel Fleet Mechanic 10/16/24
--- OUTSIDE RECORDS SUMMARY | 2024-11-20 16:27 | XMS_ITS | Clinical Summary ---
Author Organization [facility] Address [address] [facility] [address] [place] [phone] Phone Care Team Providers Care Fiberglass Model Maker Name Role Phone Pamela Bates MD Primary Care Provid er Allergies Active Allergy Reactions Criticality Noted Date Comments Shrimp 03/14/2020 Medications cyclobenzaprine (FLEXERIL) 5 MG tablet Take 2 tablets (10 mg total) by mouth 2 (two) times a day as needed. 18 tablet 03/14/2020 Active Social History Tobacco Use Types Packs/Day Years Used Date Smoking Tobacco: Never Smokeless Tobacco: Never Alcohol Use Standard Drinks/Week Comments Yes 1 (1 standard drink = 0.6 oz pur e alcohol) Education Answer Date Recorded Are you interested in more education? Not on [place] e 08/27/2022 Are you concerned about learning? Not on file 08/27/2022 No 08/27/2022 No 08/27/2022 Digital Access Answer Date Recorded No 09/28/2022 No 09/28/2022 Reliable internet access at home? Not on file 09/28/2022 Device with a working camera? Not on file Sex and Gender Information Value Date Recorded Sex Assigned at Male 03/14/2020 6:42 PM EST Legal Sex Male 6:03 PM EST Gender Identity Male 03/14/2020 6:42 PM EST Sexual Orientation Not on file Last Filed Vital Signs Vital Sign Reading Time Taken Comments Blood Pressure 140/88 03/14/2020 10:55 PM EST Pulse 88 03/14/2020 10:55 PM EST Temperature 36.4 C (97.5 F) 03/14/2020 6:38 PM EST Respiratory Rate 17 03/14/2020 10:55 PM EST Oxygen Saturation 98% 03/14/2020 10:55 PM EST Inhaled Oxygen Concentration - - Weight 115.7 kg (255 lb) 03/14/2020 6:38 PM EST Height 182.9 cm (6') 03/14/2020 6:38 PM EST Body Mass Index 34.58 03/14/2020 6:38 PM EST Plan of Treatment Not on file Medical Devices Not on file Insurance BLUE CROSS OUT OF STATE PPO BLUE CROSS OUT OF STATE PPO BLUE CROSS OUT OF STATE PPO BLUE CROSS OUT OF STATE PPO BLUE CROSS OUT OF STATE PPO BLUE CROSS OUT OF STATE PPO BLUE CROSS OUT OF STATE PPO BLUE CROSS OUT OF STATE PPO BLUE CROSS OUT OF STATE PPO Care Teams Fiberglass Model Maker Relationship Specialty Start Date End Date Pamela Bates MD [address] [place] [address] PCP - General Internal Medicine 03/14/20 Additional Source Comments The information contained in this document represents components of the legal health record. It is not the complete legal health record.[facility]
== END 2024-11-20 16:12 | disposition home or self-care (01) ==
LOC: HO.HMCH 15:39
PROVIDERS: PCP Physician Assistant; Visit Provider Physician Assistant
DX: Z91.09 Other allergy status, other than to drugs and biological substances (principal); G47.33 Obstructive sleep apnea (adult) (pediatric); I10 Essential (primary) hypertension

== ENCOUNTER 2024-12-21 15:11 | Outpatient (REF) | payer BC, SELFPAY ==
[2024-12-21 18:09] LABS: D Dimer High Sensitivity 150 NG/ML
== END 2024-12-21 15:12 | disposition home or self-care (01) ==
LOC: HO.WFDLDS 15:11
PROVIDERS: PCP Physician Assistant; Visit Provider Nurse Practitioner Family
DX: G47.33 Obstructive sleep apnea (adult) (pediatric) (principal); R07.82 Intercostal pain; M79.661 Pain in right lower leg; M79.662 Pain in left lower leg; Z91.09 Other allergy status, other than to drugs and biological substances
CPT/HCPCS: 36415; 82785; 85379

== ENCOUNTER 2024-12-21 15:11 | Outpatient (AMB) | payer BC, SELFPAY ==
--- OUTSIDE RECORDS SUMMARY | 2024-12-18 17:00 | XMS_ITS | Encounter Summary ---
Author Organization [facility] Address [address] [place] [phone] Care Team Providers Care Awning Craftsperson Name Role Phone Juan Pete Primary Care Provider [phone]- [phone] Reason for Visit * Consultation (Routine) - Authorized Specialty Diagnoses / Procedures Referred By Contac t Referred To Contact Physical Therapy Diagnoses Tendonitis, Achilles, right Tendonitis, Achilles, left Plantar fascial fibromatosis Follow-up exam Edward Garcia, DPM [address] [address] Phone: tel: fax: Referral ID Status Reason Start Date Expiration Date Visits Requested Visits Authorized [id number] Authorized Specialty Services Required 08/28/2024 08/28/2025 40 40 Encounter Details Date Type Department Care Team ([facility] st Contact Info) Description 12/18/2024 5:00 PM EDT Treatment [facility] [address] [phone] Manuel Corcoran PTA Tendonitis, Achilles, right (Primary Dx); Tendonitis, Achilles, left Social History Tobacco Use Types Packs/Day Years Used Date Smoking Tobacco: Never Assessed Sex and Gender Information Value Date Recorded Sex Assigned at Male 08/28/2024 4:37 PM EDT Legal Sex Male 4:34 AM EST Gender Identity Male 08/28/2024 4:37 PM EDT Sexual Orientation Straight 08/28/2024 4: 37 PM EDT documented as of this encounter Progress Notes * Manuel Corcoran PTA - 12/18/2024 5:00 PM EDT [facility] - Outpatient PHYSICAL THERAPY PROGNESS NOTE - OP Date: 12/18/2024 Visit Number: [id number] Patient Name: Osman Moreno : 1985 Age: 39 y.o. Gender: male Diagnosis: ICD-10-CM ICD-9-CM 1. Tendonitis, Achilles, right M76.61 726.71 2. Tendonitis, Achilles, left M76.62 726.71 Date of Onset/Surgery: 09/27/2024 Referring Provider: Edward Garcia DPM Insurance: Payor: [facility] [place] / Plan: [facility] PPO / Product Type: *No Product type* / Patient Identified by: Manuel Corcoran PTA Language: Citizen Of [place] Medications: No current outpatient medications on file prior to visit. No current facility-administered medications on file prior to visit. Allergies: is allergic to shellfish derived and shrimp. Precautions: Fall risk: No Patient/Caregiver Goals: SUBJECTIVE Subjective Report: Pt reports he felt better for a few days post ultrasound. Chart Reviewed: Yes Pain B heel/achilles pain 6/10 at worse OBJECTIVE TREATMENT INTERVENTION: Modalities: Pulsed U/S at 2.0 w/cm2, 3MhZ x8 min to each heel in prone ( 20 mins total with set up) Procedures: Nustep at level 5 x5 min Calf stretching on slant board 3 x 20 sec Heelraises on half foam roll 30 reps Heelraises with heel squeezing ball 30 reps ASSESSMENT/Response to Treatment Good response with US, decreased pain B feet post visits for few days, then pain returns to same level. Patient Education: Education provided: Yes Education Provided To: Patient utilizing Explanation mode(s) of education Response to Education: Verbal Understanding PLAN POC Development/Review: No Change in the Plan of Care; Participants: Patient Total Treatment Time: 30 Modalities: Ultrasound Time Entry: 20 Therapeutic procedures: Therapeutic Exercise Time Entry: 10 Documentation completed by Manuel Corcoran PTA documented in this encounter Plan of Treatment Upcoming Encounters Date Type Department Care Team (Late st Contact Info) Description 12/26/2024 5:30 PM EDT Treatment [facility] [address] [phone] Denis Wayne, PT documented as of this encounter Goals Goal Patient Goal Type Associated Problems [...] will be independent with HEP - ongoing documented as of this encounter Visit Diagnoses Diagnosis Tendonitis, Achilles, right- Primary Tendonitis, Achilles, left documented in this encounter Care Teams Awning Craftsperson Relationship Specialty Start Date End Date Juan Pete PA [address] [place] [phone] PCP - General Physician Tread Booker 10/16/24 documented as of this encounter
[2024-12-21 15:12] VITALS: BP 120/78; PULSE 87; O2SAT 95; BMI 33.8
--- NOTE | 2024-12-21 15:12 | MHC.OFFVIS ---
Vital Signs 12/21/24 15:12 Height 6 ft Weight 249 lb BMI 33.8 BP 120/78 Blood Pressure Location Rt brachial Position Sitting Pulse 87 Pulse Source Pulse Oximeter Pulse Oximetry (%) 95 Oxygen Delivery Method Room Air Intake Visit Reasons: Obstructive sleep apnea Allergies No Known Allergies (No Known Allergies*) Allergy (Verified 12/21/24 15:14) HPI HPI Obstructive sleep apnea: Details: Osman is a pleasant 39-year-old male, former minimal smoker with underlying severe obstructive sleep apnea. He initially was referred by PCP for management of CPAP therapy for severe SHELDON, AHI 39 with minimal nocturnal hypoxemia, lowest 82%, less than 88% for 4.6 minutes. PCP had sent order to [facility] however patient has yet to obtain equipment. He reports intermittent chest tightness and minimal dyspnea, prior PFT unremarkable. He has been using albuterol MDI twice weekly with good effect. Of note, patient reports new onset chest pain that occurred 2 days ago lasting for 8 hours describing as crushing pain with associated dyspnea resolved spotaneously. He also reports chronic UE paresthesias and reflux which were at baseline. 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 He also reports a day prior to chest pain worsening bilateral calf pain. Denies trauma, swelling or erythema. He notes h/o ankle pain and undergoing PT which he attributed the pain to. He denies prior h/o cardiac evaluation other than routine EKG. He denies evaluation at ED and reluctant to be evaluated today. He denies recurrence of chest pain since Tuesday. REPLACED BY [facility] Medical History Lumbar disc disease with radiculopathy HTN (hypertension) Sleep apnea CABRERA (generalized anxiety disorder) Mild recurrent major depression Class 1 obesity with body mass index (BMI) of 34.0 to 34.9 in adult Right sided sciatica Surgical History History of shoulder surgery Family History Father Diabetes Hypertension Mother Diabetes Hypertension Brother Brain aneurysm Stroke Social History (Reviewed 12/21/24 @ 15:14 by Sylvia Gooden [facility]) Housing: House Are you a primary dog day care attendant to a significant other at home: No Do you presently have visiting nurse or other home services: No Alcohol intake: current Alcohol intake frequency: holidays/special occasions only Alcohol type: beer and wine Patient Tobacco Use Status: Former Tobacco user Tobacco use type: Cigarette e-Cigarette/Vaping Use: Never Used Second Hand Smoke Exposure: Yes service: No Current occupational status: employed 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 Cognitive needs: No Hearing needs: No Vision needs: No Review of Systems Const Denies chills, Denies excessive sweating, Denies fever(s), Denies headache(s) and Denies night sweats Eyes Denies dry eyes, Denies irritation and Denies itchy eyes ENT Reports Normal hearing present, Denies headache(s), Denies nasal congestion, Denies nasal discharge, Denies post nasal drip and Denies sore throat Card Denies chest pain, Denies chest pain at rest, Denies chest pain with activity, Denies claudication, Denies leg edema, Denies dyspnea, Denies dyspnea on exertion, Denies orthopnea and Denies paroxysmal nocturnal dyspnea Resp Denies chest congestion, Denies cough, Denies excessive phlegm production, Denies pain on inspiration, Denies pain with cough, Denies dyspnea, Denies dyspnea on exertion, Denies stridor and Denies wheezing Musc Denies myalgias Neuro Reports Normal hearing present and Denies headache(s) Endo Denies excessive sweating Rene/Lymph Denies lymphadenopathy Aller/Immun Denies itchy eyes, Denies seasonal rhinorrhea and Denies wheezing Physical Exam Vital Signs: Last Vital Signs Pulse 87 12/21/24 15:12 BP 120/78 12/21/24 15:12 Pulse Ox 95 12/21/24 15:12 Oxygen Delivery Method Room Air 12/21/24 15:12 BMI result Body Mass Index 33.8 Const General: cooperative, healthy appearing, comfortable, no acute distress, well developed and alert Nutritional Appearance: obese Orientation/consciousness: patient oriented x3 Limitations: no limitations HEENT Head: Yes normal to inspection, Yes normocephalic and Yes atraumatic Ears: hearing grossly normal bilaterally and external ears normal Eyes General: appearance normal, both eyes and all related structures Eyelids: Yes eyelids normal Sclerae: sclerae normal EOM: EOMs intact bilaterally Neck Neck: Yes normal visual inspection and Yes no lymphadenopathy Lymphatic: no lymphadenopathy noted Chest Chest palpation & inspection: normal inspection of the chest Resp Effort & Inspection: normal respiratory effort, able to speak in complete sentences, no audible wheezes, no cough, no stridor, not tachypneic, no tripod positioning and no use of accessory muscles Auscultation: clear to auscultation bilaterally Cardio Jugular venous distension: no JVD Rate: regular rate Rhythm: regular rhythm Skin Other: warm, dry General skin exam: no rashes or lesions noted Neuro General: patient oriented x3 Cranial nerves: Yes Normal hearing present Cognition (Neuro): normal cognition Gait exam (Neuro): Normal gait present Extrem Other: significant tenderness to calves with light palpation no erythema or swelling General: Yes normal to inspection, Yes capillary refill normal, Yes no clubbing, cyanosis or edema and Yes no pedal edema Psych Appearance: grossly normal and well kempt Speech and movement: Normal speech and movement present and Clear speech present Affect: normal affect Attitude: cooperative Thought process: Normal thought process present Thought content: Normal thought content present Insight: Good insight present (Psych) Judgement: Good judgement present (Psych) Assessment & Plan Assessment & Plan (1) SHELDON (obstructive sleep apnea): Code(s): G47.33 - Obstructive sleep apnea (adult) (pediatric) Category: Medical (2) Environmental allergies: Code(s): Z91.09 - Other allergy status, other than to drugs and biological substances Category: Medical (3) Chest pain: Code(s): R07.9 - Chest pain, unspecified Category: Medical Qualifiers: Chest pain type: intercostal pain Qualified Code(s): R07.82 - Intercostal pain Plan Will attempt to send in CPAP therapy in APAP mode with pressures 6-20 cmH2O to [facility]. He is aware to call if he does not receive delivery in the next few weeks. Encouraged patient to monitor respiratory symptoms and if using albuterol MDI more than twice per week will consider daily inhaler. In regards to prior noted chest pain and worsening calf pain, instructed patient to go to ED which he declined despite concerning symptoms. Currently VSS, asymptomatic and exam unremarkable. Will send for ddimer and US BLE although bilateral DVT unlikely as well as EKG. He does have an upcoming appt with cardiology however not until March. Patient advised to seek emergent care if symptoms recur to rule out ACS. All questions were answered and patient is in agreement of plan. Will follow-up in 6-8 weeks or sooner if needed. Orders: Orders D Dimer High Sensitivity Today M79.669 - Pain in unspecified lower leg US venous duplex LE BI Today M79.669 - Pain in unspecified lower leg ECG 12 lead EKG Today R07.89 - Other chest pain Coding Level of Care Code Est Pt Level 4 (30415) Complex EM visit Add On G2211 Diagnoses SHELDON (obstructive sleep apnea) G47.33 Environmental allergies Z91.09 Intercostal pain R07.82 Chest pain type: intercostal pain
--- OUTSIDE RECORDS SUMMARY | 2024-12-21 15:14 | XMS_ITS | Encounter Summary ---
Author Organization [facility] Address [address] [place] [address] Care Team Providers Care Inserter Name Role Phone Unavailable Primary Care Provider Unavailabl e Encounter Details Date Type Department Care Team (Late st Contact Info) Description 03/31/2021 Erroneous Encounter [facility] CONVERSION DEPT [address] [place] [address] Michelle Miguel MD Social History Tobacco Use [...]
--- OUTSIDE RECORDS SUMMARY | 2024-12-21 15:14 | XMS_ITS | Clinical Summary ---
Author Organization [facility] Address [address] [place] [phone] Phone Care Team Providers Care Janitor Custodian Name Role Phone Pamela Bates MD Primary [...] CROSS OUT OF STATE PPO Care Teams Janitor Custodian Relationship Specialty Start Date End Date Pamela Bates MD [address] [place] [address] PCP - General Internal Medicine 03/14/20 Additional Source Comments The information contained in this document represents components of the legal health record. It is not the complete legal health record.[facility]
== END 2024-12-21 15:38 | disposition home or self-care (01) ==
LOC: HO.HPSW 15:11
PROVIDERS: PCP Physician Assistant; Visit Provider Nurse Practitioner Family
DX: G47.33 Obstructive sleep apnea (adult) (pediatric) (principal); Z91.09 Other allergy status, other than to drugs and biological substances; R07.82 Intercostal pain
CPT/HCPCS: 99214

== ENCOUNTER 2024-12-26 14:58 | Outpatient (REF) | payer BC, SELFPAY ==
--- NOTE | ~2024-12-26 | US_ITS ---
EXAMINATION: US TRIPLEX LOWER EXTREMITY, BILATERAL CLINICAL INFORMATION: Pain, calf region both lower extremities. COMPARISON: None available. TECHNIQUE: Color-flow triplex imaging with spectral analysis and compression Doppler were performed on the bilateral lower extremities. FINDINGS: Respiratory variation, normal compression and augmented flow are demonstrated throughout the interrogated common femoral vein, superficial femoral vein, profunda femoral vein, popliteal vein and midcalf peroneal and posterior tibial venous segments, bilaterally. There is no Pickard's cyst. US/US venous duplex LE BI IMPRESSION: No acute deep venous thrombosis interrogated veins, both lower extremities. Negative for DVT. Electronically signed by: Ajay Velasquez MD 12/26/2024 03:38 PM EDT
--- NOTE | 2024-12-26 15:32 | ECG_ITS ---
Test Reason : cp Blood Pressure : */* mmHG Vent. Rate : 91 BPM Atrial Rate : 91 BPM P-R Int : 152 ms QRS Dur : 80 ms QT Int : 362 ms P-R-T Axes : 10 19 -9 degrees QTcB Int : 445 ms Normal sinus rhythm Normal ECG When compared with ECG of 16-May-2024 15:45, No significant change was found Referred By: Andree Noble Electronically Signed By: JOHN LOYOLA
--- OUTSIDE RECORDS SUMMARY | 2024-12-26 16:19 | XMS_ITS | Clinical Summary ---
Author Organization [facility] Address [address] [place] [phone] Phone Care Team Providers Care Continuous Process Tanner Rotary Drum Name Role Phone Pamela Bates MD Primary [...] CROSS OUT OF STATE PPO Care Teams Continuous Process Tanner Rotary Drum Relationship Specialty Start Date End Date Pamela Bates MD [address] [place] [address] PCP - General Internal Medicine 03/14/20 Additional Source Comments The information contained in this document represents components of the legal health record. It is not the complete legal health record.[facility]
--- OUTSIDE RECORDS SUMMARY | 2024-12-26 16:19 | XMS_ITS | Clinical Summary ---
Author Organization [facility] Address [address] [place] [address] Care Team Providers Care Hot Mill Tin Roller Name Role Phone Unavailable Primary Care Provider [...] of 3 - 19+ 3-dose series) 2003 HPV Vaccines (1 - 3-dose SCD M series) 2011 COVID-19 Vaccine ( - 2023-2 5 season) 2024 Influenza Vaccine 11/30/2024 Pneumococcal Vaccine: Pediat devon (0-5 Years) and At-Risk Patients (6 to 49 Years) Aged Out No longer eligible b ased on patient's age to complete this topic Insurance [facility] OUT OF STATE - PPO
--- OUTSIDE RECORDS SUMMARY | 2024-12-26 16:19 | XMS_ITS | Encounter Summary ---
Author Organization [facility] Address [address] [place] [address] Care Team Providers Care Visual Lead Name Role Phone Unavailable Primary Care Provider Unavailabl e Encounter Details Date Type Department Care Team (Late st Contact Info) Description 03/31/2021 Erroneous Encounter [facility] CONVERSION DEPT [address] [place] [address] Michelle Miguel MD Social History Tobacco Use [...]
--- OUTSIDE RECORDS SUMMARY | 2024-12-26 16:19 | XMS_ITS | Clinical Summary ---
Author Organization [address] [facility] Address [address] [place] [address] Phone Care Team Providers Care Screener And Blender Operator Name Role Phone Juan Pete Primary Care Provider Allergies Active Allergy Reactions Criticality Noted Date Comments Shellfish Derived 02/28/2024 Other Reaction(s): FACIAL SWELLING Shrimp 03/14/2020 Medications No known medications Encounters Date Type Department Care Team Description 12/18/2024 5:00 PM EDT Treatment [facility] [address] [phone] Manuel Corcoran PTA Tendonitis, Achilles, right (Primary Dx); Tendonitis, Achilles, left 12/11/2024 5:00 PM EDT Treatment [facility] [address] [phone] Manuel Corcoran PTA Tendonitis, Achilles, right (Primary Dx); Tendonitis, Achilles, left 12/08/2024 11:53 AM EDT - 12/08/2024 11:59 PM EDT Hospital Encounter [facility] [address] [place] [phone] Tendonitis, Achilles, left; Plantar fascial fibromatosis; Tendonitis, Achilles, right Discharge Disposition: Home or Self Care 12/08/2024 11:53 AM EDT - 12/08/2024 11:59 PM EDT Hospital Encounter [facility] MRI [address] [place] [phone] Tendonitis, Achilles, left; Plantar fascial fibromatosis; Tendonitis, Achilles, right Discharge Disposition: Home or Self Care 12/04/2024 5:00 PM EDT Treatment [address] [phone] Manuel Corcoran, REFRIGERATION SYSTEM INSTALLER Tendonitis, Achilles, right (Primary Dx); Tendonitis, Achilles, left 11/27/2024 3:30 PM EDT Office Visit Orthopedic Surgery [facility] [address] [phone] Edward Garcia, DPM Tendonitis, Achilles, left (Primary Dx); Plantar fascial fibromatosis; Tendonitis, Achilles, right 11/08/2024 5:30 PM EDT Treatment [address] [phone] Denis Wayne, PT Tendonitis, Achilles, right (Primary Dx); Tendonitis, Achilles, left 11/01/2024 6:00 PM EDT Treatment [address] [phone] Manuel Corcoran, REFRIGERATION SYSTEM INSTALLER Tendonitis, Achilles, right (Primary Dx); Tendonitis, Achilles, left 10/29/2024 6:00 PM EDT Treatment [address] [phone] Eladio Mcdowell, REFRIGERATION SYSTEM INSTALLER Tendonitis, Achilles, right (Primary Dx); Tendonitis, Achilles, left 10/24/2024 5:00 PM EDT Treatment [address] [phone] Denis Wayne, PT Tendonitis, Achilles, right (Primary Dx); Tendonitis, Achilles, left 10/22/2024 6:00 PM EDT Treatment [address] [phone] Eladio Mcdowell, REFRIGERATION SYSTEM INSTALLER Tendonitis, Achilles, right (Primary Dx); Tendonitis, Achilles, left 10/18/2024 6:00 PM EDT Treatment [address] [phone] Eladio Mcdowell, REFRIGERATION SYSTEM INSTALLER Tendonitis, Achilles, right (Primary Dx); Tendonitis, Achilles, left 09/27/2024 5:00 PM EDT Evaluation [address] [phone] Denis Wayne, PT Tendonitis, Achilles, right; Tendonitis, [...] Info) Description 12/26/2024 5:30 PM EDT Treatment [address] [phone] Denis Wayne, PT Health Maintenance Due Date [...] Procedure Name Priority Date/Time Associated Diagnosis Comments MR ANKLE WO CONTRAST LEFT Routine 12/08/2024 1:28 PM EDT Tendonitis, Achilles, left Plantar fascial fibromatosis Tendonitis, Achilles, right MR ANKLE WO CONTRAST RIGHT Routine 12/08/2024 1:23 PM EDT Tendonitis, Achilles, left Plantar fascial fibromatosis Tendonitis, Achilles, right from Last 3 Months Results * MR Ankle wo Contrast Left (12/08/2024 1:28 PM EDT) Anatomical Region Laterality Modality Lower Extremities, Ankle Left Magneti c Resonance 12/09/2024 4:10 AM EDT Impressions 12/09/2024 4:15 AM EDT 1. Mild plantar fasciitis and Achilles tendinosis of the left ankle 2. 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 FINDINGS: Bone: Small posterior plantar calcaneal spur. Small Achilles tendon enthesophyte. Degenerative changes with mild hypertrophic lipping of the dorsal talonavicular articulation as well as the anterior and posterior tibiotalar articulation. No osteochondral lesion. Type II os navicularis. Tendons: Mild insertional posterior tibial tendinosis. The anterior extensor and remainder of the posterior flexor tendons are intact. The peroneus longus and brevis are intact. Mild Achilles tendinosis. Ligaments:The deltoid ligaments, spring ligament complexes, and lateral collateral ligaments are intact. Miscellaneous:Minimal plantar fascial thickening. No significant heel pad edema. No significant retrocalcaneal bursitis. Small amount of left ankle joint fluid. Sinus Tarsi and tarsal tunnel are unremarkable. Visualized muscles of the left ankle are unremarkable. Procedure Note Cristal Wright MD - 12/09/2024 INDICATION: Chronic fasciitis and insertional Achilles tendinitis COMPARISON: Radiographs dated January 2021 TECHNIQUE: Multiplanar, multisequence MRI was performed of the left anklewithout intravenous contrast. FINDINGS: Bone: Small posterior plantar calcaneal spur. Small Achilles tendonenthesophyte. Degenerative changes with mild hypertrophic lipping of thedorsal talonavicular articulation as well as the anterior and posteriortibiotalar articulation. No osteochondral lesion. Type II osnavicularis. Tendons: Mild insertional posterior tibial tendinosis. The anteriorextensor and remainder of the posterior flexor tendons are intact. Theperoneus longus and brevis are intact. Mild Achilles tendinosis. Ligaments:The deltoid ligaments, spring ligament complexes, and lateralcollateral ligaments are intact. Miscellaneous:Minimal plantar fascial thickening. No significant heel padedema. No significant retrocalcaneal bursitis. Small amount of leftankle joint fluid. Sinus Tarsi and tarsal tunnel are unremarkable.Visualized muscles of the left ankle are unremarkable. IMPRESSION: 1. Mild plantar fasciitis and Achilles tendinosis of the left ankle 2. Type II accessory navicular with mild insertional posterior tibialtendinosis -------- FINAL REPORT -------- Dictated By: Cristal Wright Dictated Date: 12/09/2024 04:10 ET Assigned Physician: Cristal Wright Reviewed and Electronically Signed By: Cristal Wright Signed Date: 12/09/2024 04:15 ET Workstation ID: [id number] Transcribed By: Self Edit Transcribed Date: 12/09/2024 04:10 ET Edward Garcia DPM IMG MRI PROCEDURES Final Result * MR Ankle wo Contrast Right (12/08/2024 1:23 PM EDT) Anatomical Region Laterality Modality Lower Extremities, Ankle Right Magneti c Resonance 12/09/2024 4:18 AM EDT Impressions 12/09/2024 4:22 AM EDT 1. Mild Achilles tendinosis with Achilles tendon enthesophyte formation 2. No significant plantar fasciitis 3. 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 FINDINGS: Bone: Tiny posterior plantar calcaneal spur with mild edema along the posterior aspect of the calcaneus. Bone island along the posterior aspect of the talus. No osteochondral lesion. No acute fracture or dislocation. Achilles tendon enthesophyte formation. Type II accessory navicular. Tendons: Mild insertional posterior tibial tendinosis. The anterior extensor and remainder of the posterior flexor tendons are intact. Mild peroneus tenosynovitis. The peroneus longus and brevis are intact. Minimal Achilles tendinosis. Ligaments:The deltoid ligaments, spring ligament complexes, and lateral collateral ligaments are intact. Miscellaneous:No significant plantar fascial thickening. Tarsal tunnel and sinus Tarsi appear unremarkable. Surrounding soft tissues are unremarkable. Right ankle joint fluid. Minimal retrocalcaneal bursal fluid. No muscle atrophy or fatty infiltration. Fluid signal along the base of the third and fourth TMT's which may represent joint fluid or ganglia. Procedure Note Cristal Wright MD - 12/09/2024 INDICATION: Chronic fasciitis insertional Achilles tendinitis COMPARISON: None TECHNIQUE: Multiplanar, multisequence MRI was performed of the right anklewithout intravenous contrast. FINDINGS: Bone: Tiny posterior plantar calcaneal spur with mild edema along theposterior aspect of the calcaneus. Bone island along the posterior aspectof the talus. No osteochondral lesion. No acute fracture or dislocation.Achilles tendon enthesophyte formation. Type II accessory navicular. Tendons: Mild insertional posterior tibial tendinosis. The anteriorextensor and remainder of the posterior flexor tendons are intact. Mildperoneus tenosynovitis. The peroneus longus and brevis are intact.Minimal Achilles tendinosis. Ligaments:The deltoid ligaments, spring ligament complexes, and lateralcollateral ligaments are intact. Miscellaneous:No significant plantar fascial thickening. Tarsal tunneland sinus Tarsi appear unremarkable. Surrounding soft tissues areunremarkable. Right ankle joint fluid. Minimal retrocalcaneal bursalfluid. No muscle atrophy or fatty infiltration. Fluid signal along thebase of the third and fourth TMT's which may represent joint fluid organglia. IMPRESSION: 1. Mild Achilles tendinosis with Achilles tendon enthesophyte formation 2. No significant plantar fasciitis 3. 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 Care Teams Screener And Blender Operator Relationship Specialty Start Date End Date Juan Pete PA [address] [place] [phone] PCP - General Physician Hyperbaric Tech 10/16/24
== END 2024-12-26 14:59 | disposition home or self-care (01) ==
LOC: HO.US 14:58
PROVIDERS: PCP Physician Assistant; Visit Provider Nurse Practitioner Family
DX: M79.662 Pain in left lower leg (principal); M79.661 Pain in right lower leg; R07.89 Other chest pain
CPT/HCPCS: 93005; 93970

== ENCOUNTER → 2024-12-26 15:00 | Outpatient (BNV) | payer BC, SELFPAY | PROVIDERS: PCP Physician Assistant; Visit Provider Radiology Diagnostic Radiology | DX: M79.661 Pain in right lower leg (principal); M79.662 Pain in left lower leg | CPT/HCPCS: 93970 ==

== ENCOUNTER → 2024-12-26 15:32 | Outpatient (BNV) | payer BC, SELFPAY | PROVIDERS: PCP Physician Assistant; Visit Provider Internal Medicine | DX: R07.9 Chest pain, unspecified (principal) | CPT/HCPCS: 93010 ==

== ENCOUNTER 2025-02-12 15:51 | Outpatient (AMB) | payer BC, SELFPAY ==
--- NOTE | 2025-02-12 16:05 | MHC.OFFVIS ---
Vital Signs 02/12/25 16:06 Height 6 ft Weight 252 lb 4 oz BMI 34.2 BP 124/86 Blood Pressure Location Lt brachial Position Sitting Pulse 108 H Pulse Source Pulse Oximeter Pulse Oximetry (%) 95 Oxygen Delivery Method Room Air Intake Visit Reasons: Obstructive sleep apnea Allergies No Known Allergies (No Known Allergies*) Allergy (Verified 02/12/25 16:09) HPI HPI Obstructive sleep apnea: Details: Osman is a pleasant 39-year-old male, former minimal smoker with underlying severe obstructive sleep apnea. He initially was referred by PCP for management of CPAP therapy for severe SHELDON, AHI 39 with minimal nocturnal hypoxemia, lowest 82%, less than 88% for 4.6 minutes. PCP had sent order to [facility] however order was not received by DME. At the last visit, CPAP order was sent to [facility] and patient admits to receiving a call to arrange obtaining equipment however he has yet to call back. Since the previous visit he reports resolution of BLE disomfort, ddimer negative and US negative for DVT. At this time he denies respiratory symptoms and reports minimal use of albuterol MDI. He denies any visits to urgent care or hospitalizations related to respiratory distress. [facility] Medical History Lumbar disc disease with radiculopathy HTN (hypertension) Sleep apnea CABRERA (generalized anxiety disorder) Mild recurrent major depression Class 1 obesity with body mass index (BMI) of 34.0 to 34.9 in adult Right sided sciatica Surgical History History of shoulder surgery Family History Father Diabetes Hypertension Mother Diabetes Hypertension Brother Brain aneurysm Stroke Social History Housing: House Are you a primary furnace caretaker to a significant other at home: No Do you presently have visiting nurse or other home services: No Alcohol intake: current Alcohol intake frequency: holidays/special occasions only Alcohol type: beer and wine Patient Tobacco Use Status: Former Tobacco user Tobacco use type: Cigarette e-Cigarette/Vaping Use: Never Used Second Hand Smoke Exposure: Yes service: No Current occupational status: employed 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 Cognitive needs: No Hearing needs: No Vision needs: No Review of Systems Const Denies chills, Denies excessive sweating, Denies fever(s), Denies headache(s) and Denies night sweats Eyes Denies dry eyes, Denies irritation and Denies itchy eyes ENT Reports Normal hearing present, Denies headache(s), Denies nasal congestion, Denies nasal discharge, Denies post nasal drip and Denies sore throat Card Denies chest pain, Denies chest pain at rest, Denies chest pain with activity, Denies claudication, Denies leg edema, Denies dyspnea, Denies dyspnea on exertion, Denies orthopnea and Denies paroxysmal nocturnal dyspnea Resp Denies chest congestion, Denies cough, Denies excessive phlegm production, Denies pain on inspiration, Denies pain with cough, Denies dyspnea, Denies dyspnea on exertion, Denies stridor and Denies wheezing Musc Denies myalgias Neuro Reports Normal hearing present and Denies headache(s) Endo Denies excessive sweating Rene/Lymph Denies lymphadenopathy Aller/Immun Denies itchy eyes, Denies seasonal rhinorrhea and Denies wheezing Physical Exam Vital Signs: Last Vital Signs Pulse 108 H 02/12/25 16:06 BP 124/86 02/12/25 16:06 Pulse Ox 95 02/12/25 16:06 Oxygen Delivery Method Room Air 02/12/25 16:06 BMI result Body Mass Index 34.2 Const General: cooperative, healthy appearing, comfortable, no acute distress, well developed and alert Nutritional Appearance: obese Orientation/consciousness: patient oriented x3 Limitations: no limitations HEENT Head: Yes normal to inspection, Yes normocephalic and Yes atraumatic Ears: hearing grossly normal bilaterally and external ears normal Eyes General: appearance normal, both eyes and all related structures Eyelids: Yes eyelids normal Sclerae: sclerae normal EOM: EOMs intact bilaterally Neck Neck: Yes normal visual inspection and Yes no lymphadenopathy Lymphatic: no lymphadenopathy noted Chest Chest palpation & inspection: normal inspection of the chest Resp Effort & Inspection: normal respiratory effort, able to speak in complete sentences, no audible wheezes, no cough, no stridor, not tachypneic, no tripod positioning and no use of accessory muscles Auscultation: clear to auscultation bilaterally Cardio Jugular venous distension: no JVD Rate: regular rate Rhythm: regular rhythm Skin Other: warm, dry General skin exam: no rashes or lesions noted Neuro General: patient oriented x3 Cranial nerves: Yes Normal hearing present Cognition (Neuro): normal cognition Gait exam (Neuro): Normal gait present Extrem General: Yes normal to inspection, Yes capillary refill normal, Yes no clubbing, cyanosis or edema and Yes no pedal edema Psych Appearance: grossly normal and well kempt Speech and movement: Normal speech and movement present and Clear speech present Affect: normal affect Attitude: cooperative Thought process: Normal thought process present Thought content: Normal thought content present Insight: Good insight present (Psych) Judgement: Good judgement present (Psych) Assessment & Plan Assessment & Plan (1) SHELDON (obstructive sleep apnea): Code(s): G47.33 - Obstructive sleep apnea (adult) (pediatric) Category: Medical (2) Environmental allergies: Code(s): Z91.09 - Other allergy status, other than to drugs and biological substances Category: Medical Plan Discussed importance of reaching out to to [facility] to obtain CPAP therapy and reviewed adverse effects of untreated SHELDON. He was given the phone number to [facility] and was agreeable to call. At this time he denies respiratory symptoms and is aware to call if symptoms change. All questions were answered and patient is in agreement of plan. Will follow-up to review compliance report in 10-12 weeks or sooner if needed. Coding Level of Care Code Est Pt Level 3 (30974) Diagnoses SHELDON (obstructive sleep apnea) G47.33 Environmental allergies Z91.09
[2025-02-12 16:06] VITALS: BP 124/86; PULSE 108; O2SAT 95; BMI 34.2
--- OUTSIDE RECORDS SUMMARY | 2025-02-12 18:24 | XMS_ITS | Clinical Summary ---
Author Organization [facility] Address [address] [place] [address] Phone Care Team Providers Care Orthodontist Name Role Phone Juan Pete Primary Care Provider [phone] Allergies Active Allergy Reactions Criticality Noted Date Comments Shellfish Derived 02/28/2024 Other Reaction(s): FACIAL SWELLING Shrimp 03/14/2020 Medications diphenhydrAMINE (BENADRYL) 25 mg capsule Take 1 capsule (25 mg total) by mouth every 4 (four) hours if needed for itching for up to 4 days. 16 capsule 01/15/2025 Active hydrocortisone 1 % topical cream Apply to affected area 2 times daily 15 g 01/15/2025 01/16/20 26 Active Encounters Date Type Department Care Team Description 01/15/2025 12:30 AM EDT - 01/15/2025 12:31 AM EDT Emergency [facility] Emergency [address] [place] [phone] Elgin Marquez MD Rash (Primary Dx) Discharge Disposition: Home or Self Care 12/26/2024 5:30 PM EDT Treatment [facility] [address] [phone] Denis Wayne, PT Tendonitis, Achilles, right (Primary Dx); Tendonitis, Achilles, left 12/18/2024 5:00 PM EDT Treatment [facility] [address] [phone] Manuel Corcoran PTA Tendonitis, Achilles, right (Primary Dx); Tendonitis, Achilles, left 12/11/2024 5:00 PM EDT Treatment [facility] [address] [phone] Manuel Corcoran PTA Tendonitis, Achilles, right (Primary Dx); Tendonitis, Achilles, left 12/08/2024 11:53 AM EDT - 12/08/2024 11:59 PM EDT Hospital Encounter [facility] [address] [place] [address] Tendonitis, Achilles, left; Plantar fascial fibromatosis; Tendonitis, Achilles, right Discharge Disposition: Home or Self Care 12/08/2024 11:53 AM EDT - 12/08/2024 11:59 PM EDT Hospital Encounter [address] [address] Tendonitis, Achilles, left; Plantar fascial fibromatosis; Tendonitis, Achilles, right Discharge Disposition: Home or Self Care 12/04/2024 5:00 PM EDT Treatment [address] [phone] Manuel Corcoran PTA Tendonitis, Achilles, right (Primary Dx); Tendonitis, Achilles, left 11/27/2024 3:30 PM EDT Office Visit Orthopedic Surgery [facility] [address] [phone] Edward Garcia DPM Tendonitis, Achilles, left (Primary Dx); Plantar fascial fibromatosis; Tendonitis, Achilles, right from Last 3 Months Medical History Medical History Date Comments Asthma Social History Tobacco Use Types Packs/Day Years Used Date Smoking Tobacco: Never Assessed Sex and Gender Information Value Date Recorded Sex Assigned at Male 08/28/2024 4:37 PM EDT Legal Sex Male 4:34 AM EST Gender Identity Male 08/28/2024 4:37 PM EDT Sexual Orientation Straight 08/28/2024 4: 37 PM EDT Obstetrics History Last Filed Vital Signs Vital Sign Reading Time Taken Comments Blood Pressure 136/108 01/14/2025 8:44 PM EDT Pulse 100 01/14/2025 8:44 PM EDT Temperature 36.7 C (98 F) 01/14/2025 8:44 PM EDT Respiratory Rate 20 01/14/2025 8:44 PM EDT Oxygen Saturation 98% 01/14/2025 8:44 PM EDT Inhaled Oxygen Concentration - - Weight 111 kg (245 lb) 01/14/2025 8:44 PM EDT Height 182.9 cm (6') 01/14/2025 8:44 PM EDT Body Mass Index 33.23 01/14/2025 8:44 PM EDT Plan of Treatment Health Maintenance Due Date Last Done Comments Hepatitis B Vaccines (1 of 3 - 19+ 3-dose series) 2003 HPV Vaccines (1 - 3-dose SCD M series) 2011 Cholesterol Screening (Lipid Panel) 04/04/2022 HIV Screening 04/04/2022 Hepatitis C Screening 04/04/2022 Social Influencers of Health Screening 04/04/2022 Depression Screening 05/02/2024 COVID-19 Vaccine (1 - 2023-2 5 season) 2024 Influenza Vaccine (#1) 2024 , 02/01/2019, 04/30/2016 DTaP,Tdap,and Td Vaccines (2 - Td or Tdap) 04/16/2025 04/16/2015 RSV Immunization Adult Patients (1 - 1-dose 75+ series) 2059 HIB Vaccines Aged Out No longer eligi [...] on patient's age to complete this topic Procedures Procedure Name Priority Date/Time Associated Diagnosis [...] Signed Date: 12/09/2024 04:15 ET Workstation ID: [id number] Transcribed By: Self Edit Transcribed Date: 12/09/2024 [...] Signed Date: 12/09/2024 04:15 ET Workstation ID: [id number] Transcribed By: Self Edit Transcribed Date: 12/09/2024 [...] Signed Date: 12/09/2024 04:22 ET Workstation ID: [id number] Transcribed By: Self Edit Transcribed Date: 12/09/2024 [...] Signed Date: 12/09/2024 04:22 ET Workstation ID: [id number] Transcribed By: Self Edit Transcribed Date: 12/09/2024 04:18 ET Edward Garcia DPM IMG MRI PROCEDURES Final Result from Last 3 Months [facility] Care Teams Orthodontist Relationship Specialty Start Date End Date Juan Pete PA [address] [place] [address] PCP - General Physician Director Fraud 10/16/24
--- OUTSIDE RECORDS SUMMARY | 2025-02-12 18:24 | XMS_ITS | Clinical Summary ---
Author Organization [facility] Address [address] [place] [id number] Care Team Providers Care Senior Production Manager Name Role Phone Unavailable Primary Care Provider [...] - 19+ 3-dose series) 2003 Influenza Vaccine 11/30/2024 COVID-19 Vaccine ( - 2023-2 5 season) 2024 HPV Vaccines (No Doses Required) Completed Pneumococcal Vaccine: Pediat devon (0-5 Years) and At-Risk Patients (6 to 49 Years) Aged Out No longer eligible b ased on patient's age to complete this topic Insurance [facility] OUT [facility] STATE - PPO
--- OUTSIDE RECORDS SUMMARY | 2025-02-12 18:24 | XMS_ITS | Encounter Summary ---
Author Organization [facility] Address [address] [place] [address] Care Team Providers Care Photostat Operator Helper Name Role Phone Unavailable Primary Care Provider Unavailabl e Encounter Details Date Type Department Care Team (Late st Contact Info) Description 03/31/2021 Erroneous Encounter [facility] DEPT [address] [place] [address] Michelle Miguel MD Social History Tobacco Use [...]
--- OUTSIDE RECORDS SUMMARY | 2025-02-12 18:24 | XMS_ITS | Clinical Summary ---
Author Organization [facility] Address [address] [facility] [address] [place] [phone] Phone Care Team Providers Care Quantitative Associate Name Role Phone Pamela Bates MD Primary [...] CROSS OUT OF STATE PPO Care Teams Quantitative Associate Relationship Specialty Start Date End Date Pamela Bates MD [address] [place] [address] PCP - General Internal Medicine 03/14/20 Additional Source Comments The information contained in this document represents components of the legal health record. It is not the complete legal health record.[facility]
== END 2025-02-12 16:30 | disposition home or self-care (01) ==
LOC: HO.HPSW 15:52
PROVIDERS: PCP Physician Assistant; Visit Provider Nurse Practitioner Family
DX: G47.33 Obstructive sleep apnea (adult) (pediatric) (principal); Z91.09 Other allergy status, other than to drugs and biological substances
CPT/HCPCS: 99213

== ENCOUNTER 2025-02-27 15:44 | Outpatient (AMB) | payer BC, SELFPAY ==
--- OUTSIDE RECORDS SUMMARY | 2025-02-25 15:00 | XMS_ITS | Encounter Summary ---
Author Organization [facility] Address [address] [place] [phone] Care Team Providers Care Sales Agent [employer] Insurance Name Role Phone Juan Pete Primary Care Provider [phone] Reason for Visit * Reason Comments Foot Pain Encounter Details Date Type Department Care Team (Late st Contact Info) Description 02/25/2025 3:00 PM EDT Office Visit Orthopedic Surgery - [place] [address] [place] [address] [place] [phone] Edward Garcia DPM [address] [place] [phone] Tendonitis, Achilles, left (Primary Dx); Plantar fascial fibromatosis; Tendonitis, Achilles, right Social History Tobacco Use Types Packs/Day Years Used Date Smoking Tobacco: Never Assessed Sex and Gender Information Value Date Recorded Sex Assigned at Male 08/28/2024 4:37 PM EDT Legal Sex Male 4:34 AM EST Gender Identity Male 08/28/2024 4:37 PM EDT Sexual Orientation Straight 08/28/2024 4: 37 PM EDT documented as of this encounter Progress Notes * Edward Garcia DPM - 02/25/2025 3:00 PM EDT S Presents today complaining pain back of his heels and bottom of his heels pain discomfort is a 10 out of 10 vision on scale worse activity present activity states it may still form to stand or walk for prolonged period time she is throbbing achy intense pain denies trauma to either area states thatboth feet feel about the same and pain discomfort patient stated take the steroid taper with no significant improvement has been working physical therapy with no improvement patient to get MRIs of both lower extremities has several questions about the advanced imaging study report ROS: GENERAL: Pt denies nausea, fever, vomiting, chills, or shortness of breath. Pt in NAD. CARDIOLOGY: pt denies chest pain, palpitations LUNGS: pt denies shortness of breath MUSCULOSKELETAL: See HPI, otherwise no joint pain or swelling, back pain, or muscle pain. SKIN: see HPI, otherwise no lesions, rash or itching NEURO: No persistent headache, weakness or numbness The remainder of the review of systems is noncontributory PAST MEDICAL HISTORY: There is no problem list on file for this patient. SOCIAL HISTORY: Social History Tobacco Use Smoking status: Not on file Smokeless tobacco: Not on file Substance Use Topics Alcohol use: Not on file ACTIVE MEDICATIONS: Outpatient Medications Marked as Taking for the 02/25/25 encounter (Office Visit) with Edward Garcia DPM Medication Sig Dispense Refill albuterol HFA (PROAIR HFA ; PROVENTIL HFA ; VENTOLIN HFA) 90 mcg/actuation inhaler INHALE 1 PUFF BYMOUTH 4 TIMES A DAY FOR 30 DAYS cyclobenzaprine (FLEXERIL) 5 mg tablet Take 2 tablets (10 mg total) by mouth 2 times daily as needed. famotidine (PEPCID) 40 mg tablet Take 1 tablet (40 mg total) by mouth. HYDROcodone-acetaminophen (NORCO) 5-325 mg per tablet Take by mouth. hydrOXYzine HCL (ATARAX) 25 mg tablet TAKE 1 TABLET BY MOUTH EVERY DAY AT BEDTIME FOR 10 DAYS levocetirizine (XYZAL) 5 mg tablet Take 1 tablet (5 mg total) by mouth at bedtime. loperamide (IMODIUM) 2 mg capsule Take 1 capsule (2 mg total) by mouth. methocarbamoL (ROBAXIN) 500 mg tablet Take 1 tablet (500 mg total) by mouth. montelukast (SINGULAIR) 10 mg tablet phenylephrine (SUDAFED PE) 10 mg tablet Take 1 tablet (10 mg total) by mouth. sucralfate (CARAFATE) 1 gram tablet Take 1 tablet (1 g total) by mouth. ALLERGIES: Allergies Allergen Reactions Shellfish Derived Other Reaction(s): FACIAL SWELLING Shrimp PHYSICAL EXAM: There were no vitals taken for this visit. PODIATRIC EXAMINATION: GENERAL: Patient appears well nourished, with NAD. VASCULAR: Dorsalis pedis pulses are 2/4 bilaterally and Posterior tibial pulses are 2/4 bilaterally. Capillary filling time within normal limits the digits. No pallor on elevation or rubor on dependency. No varicosities. Denies rest pain or claudication pain. NEUROLOGICAL: Sharp/dull sensation intact, protective sensation intact 10/10 with 5.07 semmes tavares bilaterally, vibratory sensation with tuning fork intact to the tibial tuberosity. ORTHOPEDIC: Good muscle strength 5/5 of all flexors and extensors. Dorsi flexion of ankle , degrees, plantar flexion WNL. No muscle atrophy. .Pain with palpation of the medial tuber of the both calcaneus, negative palpable fibromas Equinus with 5 degrees dorsiflexion with knee bent 0 degrees with knee extended positive silver skoild test No pain on palpation of the posterior tibial tendon, patient to perform single and double heel raise Positive insertional pain on palpation of the Achilles tendon. Negative palpable deficits of the Achilles tendon Normal range of motion of the ankle joint and subtalar joint DERMATOLOGICAL:.No masses or skin lesions noted. Normal skin temperature, normal skin turgor. BIOMECHANICS: Ankle ROM WNL, STJ ROM wnl, MTJ ROM wnl, 1st MPJ ROM wnl. IMAGING: IMPRESSION: 1. Tendonitis, Achilles, left 2. Plantar fascial fibromatosis 3. Tendonitis, Achilles, right PLAN: Pt was seen and examined, history reviewed. 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 shoes with insoles buildup through the heel counter recommended X-rays reviewed both feet 3 views Discussed with patient getting severely worsening pain discomfort of both lower extremities he is continue to fail physical therapy discussed advancement study MRI of both lower extremities MRI reviewed of the right ankle and hindfoot MRI reviewed of the left ankle and hindfoot After review of advanced imaging studies of both feet would recommend steroid injections given mildfasciitis and Achilles tendinitis Patient states he is willing consider pursuing but none at today's appointment Follow-up in 1 month Edward Garcia DPM documented in this encounter Plan of Treatment Upcoming Encounters Date Type Department Care Team (Late st Contact Info) Description 04/03/2025 3:30 PM EST Office Visit Orthopedic Surgery - [address] [phone] Edward Garcia DPM [address] [place] [phone] documented as of this encounter Visit Diagnoses Diagnosis Tendonitis, Achilles, left- Primary Plantar fascial fibromatosis Tendonitis, Achilles, right documented in this encounter Historical Medications * This list may reflect changes made after this encounter. sucralfate (CARAFATE) 1 gram tablet Take 1 tablet (1 g total) by mouth. 06/22/2018 phenylephrine (SUDAFED PE) 10 mg tablet Take 1 tablet (10 mg total) by mouth. 08/28/2017 montelukast (SINGULAIR) 10 mg tablet 02/15/2025 loperamide (IMODIUM) 2 mg capsule Take 1 capsule (2 mg total) by mouth. 04/28/2017 methocarbamoL (ROBAXIN) 500 mg tablet Take 1 tablet (500 mg total) by mouth. 12/26/2017 HYDROcodone-aceta minophen (NORCO) 5-325 mg per tablet Take by mouth. 03/29/2018 levocetirizine (XYZAL) 5 mg tablet Take 1 tablet (5 mg total) by mouth at bedtime. 01/09/2025 hydrOXYzine HCL (ATARAX) 25 mg tablet TAKE 1 TABLET BY MOUTH EVERY DAY AT BEDTIME FOR 10 DAYS 05/17/2024 famotidine (PEPCID) 40 mg tablet Take 1 tablet (40 mg total) by mouth. 04/28/2017 cyclobenzaprine (FLEXERIL) 5 mg tablet Take 2 tablets (10 mg total) by mouth 2 times daily as needed. 03/14/2020 albuterol HFA (PROAIR HFA ; PROVENTIL HFA ; VENTOLIN HFA) 90 mcg/actuation inhaler INHALE 1 PUFF BY MOUTH 4 TIMES A DAY FOR 30 DAYS 11/20/2024 added in this encounter Care Teams Sales Agent [employer] Insurance Relationship Specialty Start Date End Date Juan Pete PA [address] [place] [address] PCP - General Physician Tourist Agent 10/16/24 documented as of this encounter
--- NOTE | 2025-02-27 15:59 | A.OFFPC_ITS ---
Vital Signs 02/27/25 16:01 Height 6 ft Weight 251 lb 2 oz BMI 34.1 BP 120/60 Blood Pressure Location Lt brachial Position Sitting Pulse 108 H Pulse Source Pulse Oximeter Temp 97.3 F Temp Source Temporal Artery Scan Pulse Oximetry (%) 94 Oxygen Delivery Method Room Air Intake Visit Reasons: 3mth f/u Intake Note: Patient is here to follow up on SHELDON, HTN . Medical Donation Professional Required: No Railroad Commissioner: Not Required per policy Accompanied by: Self / Same As Patient Allergies No Known Allergies (No Known Allergies*) Allergy (Verified 02/27/25 16:08) Medication List - Last Reconciled 02/27/25 by Juan Pete PA-C albuterol sulfate 90 mcg/actuation 1 inh inhalation QID 30 days CPAP (CPAP Machine/Device) Need for auto PAP 6 to 20 cm of water montelukast 10 mg PO DAILY 90 days Tobacco use date assessed: 02/27/25 Dental Screening Dental Screen Date: 05/17/24 HPI 3mth f/u HPI Details Patient is a 39-year-old male here today for a follow-up visit ? Patient has a past medical history significant for obesity, generalized anxiety disorder and major depressive disorder, lumbar disc disease, hypertension Concern-- > The patient reports significant sleep disturbances, typically sleeping only 2-3 hours per night. He describes nights where he cannot sleep at all due to a racing mind and feelings of anxiety, which he attributes to stress. These episodes are often accompanied by palpitations, which he describes as feeling like a heart attack. He also notes feeling super heavy and sluggish around 7 or 8 p.m. a couple of times per week, which he states is an improvement from a few months ago when it was almost a daily occurrence. This sensation often occurs after his dinner. Obstructive sleep apnea: Has been recently diagnosed with severe obstructive sleep apnea and has followed up with pulmonology in his started on CPAP machine. But he has been waiting for over six months for its approval and delivery. He reports severe sleep disturbances, including difficulty breathing at night and daytime fatigue, which have significantly impacted his quality of life. The patient also suffers from allergic rhinitis, with high allergen sensitivity to environmental factors such as birch trees. He experiences symptoms like nasal congestion and difficulty breathing, particularly at night, but has not been using daily allergy medication. .. Class 1 obesity: Has lost a few lb since last office visit. Has not been able to be to physically active. Today's BMI at 34 . Hypertension: Has not started blood pressure medication, blood pressure today in office normal. He has been able to manage his blood pressure with lifestyle modifications. Laboratory Tests 08/28/24 12/21/24 11:29 15:59 RBC 5.50 Creatinine 0.78 D. farinae Allrgen IgE 13.30 H D. pteronyssinus I gE Cl 14.40 H [place] All erg 10.70 H IgE 289 H PFSH Medical History Lumbar disc disease with radiculopathy HTN (hypertension) Sleep apnea CABRERA (generalized anxiety disorder) Mild recurrent major depression Class 1 obesity with body mass index (BMI) of 34.0 to 34.9 in adult Right sided sciatica Surgical History History of shoulder surgery Family History Father Diabetes Hypertension Mother Diabetes Hypertension Brother Brain aneurysm Stroke Social History Housing: House Are you a primary critical care registered nurse to a significant other at home: No Do you presently have visiting nurse or other home services: No Alcohol intake: current Alcohol intake frequency: holidays/special occasions only Alcohol type: beer and wine Patient Tobacco Use Status: Former Tobacco user Tobacco use type: Cigarette e-Cigarette/Vaping Use: Never Used Second Hand Smoke Exposure: Yes service: No Current occupational status: employed 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 Cognitive needs: No Hearing needs: No Vision needs: Yes (Glasses) Questionnaire Thrive Questionnaire Date Thrive assessed: 05/17/24 I am a: Patient What is your living situation today?: I have a place to live, but I am worried about losing it in the future Within the past 12 months, did the food you bought not last and you didn't have the money to get more?: Never true Within the past 12 months, did you worry whether your food would run out before you got money to buy more?: Never true Do you have trouble paying for medicines?: No Do you have trouble getting transportation to medical appointments?: No Do you have trouble paying your heating and electricity bill?: No Do you have trouble taking care of your child, family member or friend?: No Do you have trouble with day-to-day activities such as bathing, preparing meals, shopping, managing finances, etc.?: No Are you currently unemployed and looking for a job?: No Are you interested in more education?: Yes Please select the resources that you would like help with: None Currently or been in a relationship where the following occur: No concerns reported THRIVE Score: 1 CABRERA-7 AMB Questionnaire CABRERA-7 Date CABRERA - 7 assessed: 05/17/24 Source: Developed by Drs. Denis Dougherty, Kayla Fraser, Amilcar Ramos and colleagues, with an educational jayy from [employer]. Review of Systems Const Denies headache(s) Eyes Denies loss of vision ENT Denies vertigo, Denies dizziness, Denies headache(s) and Denies sore throat Card Denies chest pain, Denies leg edema and Denies lightheadedness Resp Denies cough, Denies hemoptysis and Denies wheezing GI Denies abdominal pain, Denies melena, Denies constipation, Denies diarrhea and Denies vomiting Denies dysuria, Denies urinary frequency and Denies urinary urgency Musc Denies arthralgias, Denies joint swelling, Denies numbness and Denies tingling Neuro Denies Abnormal speech present, Denies behavioral changes, Denies vertigo, Denies dizziness, Denies headache(s), Denies loss of vision, Denies memory loss, Denies numbness and Denies tingling Psych Denies anxiety, Denies behavioral changes, Denies depression, Denies memory loss and Denies panic attacks Rene/Lymph Denies easy bleeding and Denies easy bruising Aller/Immun Denies wheezing Physical exam (Primary Care) Vital Signs: Last Vital Signs Temp 97.3 F 02/27/25 16:01 Pulse 108 H 02/27/25 16:01 BP 120/60 02/27/25 16:01 Pulse Ox 94 02/27/25 16:01 Oxygen Delivery Method Room Air 02/27/25 16:01 BMI result Body Mass Index 34.1 Tobacco/Smoking Status: Tobacco use Status Tobacco use date assessed 02/27/25 02/27/25 16:04 Patient Tobacco Use Status Former Tobacco user 02/27/25 16:04 Tobacco use type Cigarette 02/27/25 16:04 e-Cigarette/Vaping Use Never Used 02/27/25 16:04 Thrive Assessment: Date of Thrive Assessment Date Thrive assessed 05/17/24 02/27/25 16:04 Currently or been in a relationship where the following occur: No concerns reported Const General: healthy appearing, no acute distress, alert and awake Nutritional Appearance: well nourished Orientation/consciousness: oriented to person, oriented to place and oriented to time HENMT Ears: TM's normal bilaterally General nose exam: Normal nasal mucous membranes and turbinates present Eyes Conjunctivae: conjunctivae normal Sclerae: sclerae normal Pupils: Equal, round and reactive pupils present Neck Neck: Yes no lymphadenopathy and Yes no JVD Thyroid: Thyroid normal Carotids: no bruits Resp Effort & Inspection: normal respiratory effort and not tachypneic Auscultation: no crackles, no rales, no rhonchi and no wheezes Cardio Rate: regular rate Rhythm: regular rhythm Heart sounds: no murmurs and normal S1 and S2 GI Palpation (GI): Soft to palpation, nontender, no hepatomegaly and no splenomegaly Auscultation: normal bowel sounds Skin General skin exam: no rashes or lesions noted and dry skin Neuro General: oriented to person, oriented to place and oriented to time Cranial nerves: Yes Equal, round and reactive pupils present Speech: No Abnormal speech present Gait exam (Neuro): Normal gait present Motor exam (neuro): no tremor noted Extrem Right upper extremity: full ROM Left upper extremity: full ROM Right lower extremity: full ROM; no edema Left lower extremity: full ROM; no edema Psych Mental Status: mental status grossly normal Speech and movement: Normal speech and movement present Affect: normal affect Attitude: cooperative Thought process: Normal thought process present Coding Level of Care Code Est Pt Level 4 (99436) Diagnoses Environmental allergies Z91.09 SHELDON (obstructive sleep apnea) G47.33 Primary hypertension I10 Hypertension type: primary hypertension CABRERA (generalized anxiety disorder) F41.1 Heart palpitations R00.2 Assessment & Plan Assessment & Plan (1) Environmental allergies: Code(s): Z91.09 - Other allergy status, other than to drugs and biological substances Category: Medical Plan: The patient experiences allergic rhinitis with significant environmental allergen sensitivity. A daily allergy medication and a referral to an counter former for potential immunotherapy were discussed to manage symptoms. (2) SHELDON (obstructive sleep apnea): Code(s): G47.33 - Obstructive sleep apnea (adult) (pediatric) Category: Medical Plan: Has been diagnosed with severe obstructive sleep apnea. Has an upcoming appointment with DME supplier to pick up man a CPAP machine. (3) HTN (hypertension): Code(s): I10 - Essential (primary) hypertension Category: Medical Qualifiers: Hypertension type: primary hypertension Qualified Code(s): I10 - Essential (primary) hypertension Plan: Patient's blood pressure acceptable today in office. Not on any blood pressure medication at this time. He has been trying to work on lifestyle and dietary modifications. Goal blood pressure remain below 140/90 (4) CABRERA (generalized anxiety disorder): Code(s): F41.1 - Generalized anxiety disorder Category: Medical Plan: Patient's signs and symptoms somewhat concerning for an stress-induced anxiety. We did discuss medication we can try as needed though he would like to hold off on this for now. (5) Heart palpitations: Code(s): R00.2 - Palpitations Category: Medical Plan: To evaluate his symptoms of palpitations and the finding of tachycardia, a 5-day cardiac event monitor (Holter monitor) will be ordered. This is to investigate for potential arrhythmias such as atrial fibrillation or atrial flutter. Regarding his anxiety and insomnia, medication options including propranolol, hydroxyzine, or lorazepam to be taken as needed were discussed. Orders: Orders ECG 5 day holter monitor 02/27/25 R00.2 - Palpitations Microalbumin, Random (w Creat) 02/27/25 I10 - Essential (primary) hypertension Comprehensive [place]. Panel Fast 02/27/25 I10 - Essential (primary) hypertension Complete Blood Count no Diff 02/27/25 I10 - Essential (primary) hypertension
[2025-02-27 16:01] VITALS: BP 120/60; PULSE 108; TEMP 36.3; O2SAT 94; BMI 34.1
--- OUTSIDE RECORDS SUMMARY | 2025-02-27 19:57 | XMS_ITS | Clinical Summary ---
Author Organization [address] [facility] Address [address] [place] [address] Phone Care Team Providers Care Emission Technician Name Role Phone Juan Pete Primary Care Provider [phone] Allergies Active Allergy Reactions Criticality Noted Date [...] daily 15 g 01/15/2025 01/16/20 26 Active albuterol HFA (PROAIR HFA ; PROVENTIL HFA ; VENTOLIN HFA) 90 mcg/actuation inhaler INHALE 1 PUFF BY MOUTH 4 TIMES A DAY FOR 30 DAYS 11/20/2024 Active cyclobenzaprine (FLEXERIL) 5 mg tablet Take 2 tablets (10 mg total) by mouth 2 times daily as needed. 03/14/2020 Active famotidine (PEPCID) 40 mg tablet Take 1 tablet (40 mg total) by mouth. 04/28/2017 Active hydrOXYzine HCL (ATARAX) 25 mg tablet TAKE 1 TABLET BY MOUTH EVERY DAY AT BEDTIME FOR 10 DAYS 05/17/2024 Active levocetirizine (XYZAL) 5 mg tablet Take 1 tablet (5 mg total) by mouth at bedtime. 01/09/2025 Active HYDROcodone-sarah taminophen (NORCO) 5-325 mg per tablet Take by mouth. 03/29/2018 Active methocarbamoL (ROBAXIN) 500 mg tablet Take 1 tablet (500 mg total) by mouth. 12/26/2017 Active loperamide (IMODIUM) 2 mg capsule Take 1 capsule (2 mg total) by mouth. 04/28/2017 Active montelukast (SINGULAIR) 10 mg tablet 02/15/2025 Active phenylephrine (SUDAFED PE) 10 mg tablet Take 1 tablet (10 mg total) by mouth. 08/28/2017 Active sucralfate (CARAFATE) 1 gram tablet Take 1 tablet (1 g total) by mouth. 06/22/2018 Active Encounters Date Type Department Care Team Description 02/25/2025 3:00 PM EDT Office Visit Orthopedic Surgery [place] [address] [phone] Edward Garcia, DPM Tendonitis, Achilles, left (Primary Dx); Plantar fascial fibromatosis; Tendonitis, Achilles, right 01/15/2025 12:30 AM EDT - 01/15/2025 12:31 AM EDT Emergency [facility] Emergency [address] [place] [address] Elgin Marquez MD Rash (Primary Dx) Discharge Disposition: Home or Self Care 12/26/2024 5:30 PM EDT Treatment [address] [phone] Denis Wayne, PT Tendonitis, Achilles, right (Primary Dx); Tendonitis, Achilles, left 12/18/2024 5:00 PM EDT Treatment [address] [phone] Manuel Corcoran PTA Tendonitis, Achilles, right (Primary Dx); Tendonitis, Achilles, left 12/11/2024 5:00 PM EDT Treatment [address] [phone] Manuel Corcoran PTA Tendonitis, Achilles, right (Primary Dx); Tendonitis, Achilles, left 12/08/2024 11:53 AM EDT - 12/08/2024 11:59 PM EDT Hospital Encounter [facility] MRI [address] [place] [phone] Tendonitis, Achilles, left; Plantar fascial fibromatosis; Tendonitis, Achilles, right Discharge Disposition: Home or Self Care 12/08/2024 11:53 AM EDT - 12/08/2024 11:59 PM EDT Hospital Encounter [facility] MRI [address] [place] [phone] Tendonitis, Achilles, left; Plantar fascial fibromatosis; Tendonitis, Achilles, right Discharge Disposition: Home or Self Care 12/04/2024 5:00 PM EDT Treatment [facility] [address] [facility] [address] [place] [phone] Manuel Corcoran PTA Tendonitis, Achilles, right (Primary Dx); Tendonitis, Achilles, left 11/27/2024 3:30 PM EDT Office Visit Orthopedic Surgery [facility] [address] [facility] [address] [place] [phone] Edward Garcia, DPM Tendonitis, Achilles, left (Primary [...] 01/14/2025 8:44 PM EDT Plan of Treatment Upcoming Encounters Date Type Department Care Team (Late st Contact Info) Description 04/03/2025 3:30 PM EST Office Visit Orthopedic Surgery - [place] [address] [place] [address] [place] [phone] Edward Garcia, DPM [address] [place] [phone] Health Maintenance Due Date Last Done Comments Hepatitis B Vaccines (1 of 3 - 19+ 3-dose series) 2003 HPV Vaccines (1 - 3-dose SCD M series) 2011 Cholesterol Screening (Lipid Panel) 04/04/2022 HIV Screening 04/04/2022 Hepatitis C Screening 04/04/2022 Social Influencers of Health Screening 04/04/2022 Depression Screening 05/02/2024 COVID-19 Vaccine (1 - 2023-2 5 season) 2024 Influenza Vaccine (#1) 2024 4, 02/01/2019, 04/30/2016 DTaP,Tdap,and Td Vaccines (2 - [...] Signed Date: 12/09/2024 04:15 ET Workstation ID: [id number] Transcribed By: Self Edit Transcribed Date: 12/09/2024 [...] Signed Date: 12/09/2024 04:15 ET Workstation ID: [id number] Transcribed By: Self Edit Transcribed Date: 12/09/2024 04:10 ET Edward Garcia DPM IM MRI PROCEDURES Final Result * MR Ankle [...] Signed Date: 12/09/2024 04:22 ET Workstation ID: [id number] Transcribed By: Self Edit Transcribed Date: 12/09/2024 [...] Signed Date: 12/09/2024 04:22 ET Workstation ID: [id number] Transcribed By: Self Edit Transcribed Date: 12/09/2024 04:18 ET Edward Garcia DPM IMG MRI PROCEDURES Final Result from Last 3 Months Insurance [facility] Care Teams Emission Technician Relationship Specialty Start Date End Date Juan Pete PA [address] [place] [address] PCP - General Physician Computer Systems Designer 10/16/24
--- OUTSIDE RECORDS SUMMARY | 2025-02-27 19:57 | XMS_ITS | Clinical Summary ---
Author Organization [facility] Address [address] [place] [id number] Care Team Providers Care Network Security Engineer Name Role Phone Unavailable Primary Care Provider [...] patient's age to complete this topic Insurance [facility] OUT OF STATE - PPO
--- OUTSIDE RECORDS SUMMARY | 2025-02-27 19:57 | XMS_ITS | Clinical Summary ---
Author Organization [facility] Address [address] [facility] [address] [place] [phone] Phone Care Team Providers Care Process Equipment Operator Name Role Phone Pamela Bates MD Primary [...] CROSS OUT OF STATE PPO Care Teams Process Equipment Operator Relationship Specialty Start Date End Date Pamela Bates MD [address] [place] [address] PCP - General Internal Medicine 03/14/20 Additional Source Comments The information contained in this document represents components of the legal health record. It is not the complete legal health record.[facility]
--- OUTSIDE RECORDS SUMMARY | 2025-02-27 19:57 | XMS_ITS | Encounter Summary ---
Author Organization [facility] Address [address] [place] [address] Care Team Providers Care Milk Condenser Name Role Phone Unavailable Primary Care Provider Unavailabl e Encounter Details Date Type Department Care Team (Late st Contact Info) Description 03/31/2021 Erroneous Encounter [facility] DEPT [address] [place] [address] Michelle Miguel MD Social History Tobacco Use [...]
== END 2025-02-27 16:29 | disposition home or self-care (01) ==
LOC: HO.HMCH 15:45
PROVIDERS: PCP Physician Assistant; Visit Provider Physician Assistant
DX: Z91.09 Other allergy status, other than to drugs and biological substances (principal); G47.33 Obstructive sleep apnea (adult) (pediatric); I10 Essential (primary) hypertension; F41.1 Generalized anxiety disorder; R00.2 Palpitations